=== PATIENT | female | born 1970 | race Caucasian/White ===

== ENCOUNTER → 2018-05-31 09:17 | Outpatient (CLI) | payer OTHER, SELFPAY ==
--- NOTE | 2018-05-31 09:20 | BI_ITS ---
MAMMOGRAPHY - BILATERAL SCREENING REASON FOR EXAM: Female, 47 years old. Routine annual screening examination. PERTINENT HISTORY: Non-contributory. TECHNIQUE: Digital bilateral breast manny (3D mammographic acquisition) in the CC and MLO projections. 2-D mediolateral oblique (MLO) and craniocaudad (CC) views of both breasts were obtained. CAD: Full Field Digital Mammography with Computer Added Detection was performed. COMPARISON: Comparison is made with prior outside examination dated June 26, 2012. FINDINGS: Breast Composition: The breasts are extremely dense, which lowers the sensitivity of mammography. There are no dominant masses or suspicious calcifications. 1.3 cm well-defined nodule in the right axillary region. This has increased in size as compared to prior study. Correlation with ultrasound is recommended. No other significant abnormalities are identified. BI/SCREENING MAMM (CAD), BILAT IMPRESSION: 1.3 cm well-defined nodule in the right axillary region as described. This has increased in size as compared to prior study. Correlation with ultrasound is recommended. ASSESSMENT CATEGORY: BIRADS Category 0: Incomplete. Need additional imaging evaluation. A letter regarding these results will be sent to the patient by the facility within 30 days. Approximately 10% of breast cancers are not detected by mammography. A normal mammogram should not delay biopsy of a clinically suspicious abnormality. [id number] Electronically Signed: Mikel Schmidt MD at 15:06 EST , Service support ,
--- NOTE | 2018-05-31 09:25 | BD_ITS ---
STUDY: DUAL ENERGY X-RAY ABSORPTIOMETRY / DXA REASON FOR EXAM: Female, 47 years old. The patient is postmenopausal. No loss of height. TECHNIQUE: Bone Mineral Density (BMD) measurements of lumbar spine and bilateral hips were obtained. COMPARISON: None. FINDINGS: Lumbar Spine (L1-L4): g/cm2 (0.842) / T-score (-2.8) / Z-score (-2.5) Findings are suggestive of osteoporosis with a high fracture risk. Left Femur Total: g/cm2 (0.698) / T-score (-2.5) / Z-score (-2.0) Left Femoral Neck: g/cm2 (0.699) / T-score (-2.4) / Z-score (-1.7) Right Femur Total: g/cm2 (0.723) / T-score (-2.3) / Z-score (-1.8) Right Femoral Neck: g/cm2 (0.718) / T-score (-2.3) / Z-score (-1.6) BD/Dexa Bone Density Study IMPRESSION: The patient is considered osteoporotic as outlined below according to World [employer] Organization (WHO) criteria with a high fracture risk. Reference Information: The T-score is the number of standard deviations above or below the standard which is normal for young adults at their peak bone mineral density. The World Health Organization (WHO) interprets the T-scores as follows: Above -1 Normal bone density Between -1 and -2.5 Osteopenia Equal to / or below -2.5 Osteoporosis As a practical clinical guideline, osteopenia may be graded as follows: Mild -1 through -1.5 Moderate -1.6 through -2.0 Severe -2.1 through -2.4 The Z-score is the number of standard deviations above or below age-matched controls. A Z-score of less than -1.5 would be considered abnormal. References: 1. NIH Osteoporosis and Related Bone Diseases http://www.osteo.org 2. International Society for Clinical Densitometry http://www.iscd.org 3. National Osteoporosis Foundation http://www.nof.org Electronically Signed: Mikel Schmidt MD at 9:08 EST , Service support ,
== END ==
PROVIDERS: Family Provider Internal Medicine; PCP Internal Medicine; Referring Provider Internal Medicine; Visit Provider Internal Medicine
DX: M81.0 Age-related osteoporosis without current pathological fracture (principal); Z78.0 Asymptomatic menopausal state; Z12.31 Encounter for screening mammogram for malignant neoplasm of breast
CPT/HCPCS: 77063; 77067; 77080

== ENCOUNTER → 2018-06-05 09:29 | Outpatient (CLI) | payer OTHER, SELFPAY ==
--- NOTE | 2018-06-05 09:31 | US_ITS ---
STUDY: ULTRASOUND BREAST - RIGHT REASON FOR EXAM: Female, 47 years old. Abnormal screening mammogram. TECHNIQUE: Axial and longitudinal images of the RIGHT breast were performed with a high resolution ultrasound transducer. COMPARISON: Comparison is made with prior mammogram dated May 31, 2018. FINDINGS: RIGHT Breast: The mammographic abnormality corresponds to a 1 cm x 1.2 cm x 0.8 cm hypoechoic solid nodule. Small amount of blood flow is seen along its periphery. A biopsy is recommended for further evaluation. US/Breast Limited Unilateral IMPRESSION: The mammographic and mildly corresponds to a 1 cm x 1.2 cm x 0.8 cm hypoechoic solid nodule is possible. A biopsy is recommended for further evaluation. ASSESSMENT CATEGORY: BIRADS Category 4: Suspicious - Biopsy Should Be Considered. A letter regarding these results will be sent to the patient by the facility within 30 days. Electronically Signed: Mikel Schmidt MD at 10:59 EST , Service support ,
== END ==
PROVIDERS: Family Provider Internal Medicine; PCP Internal Medicine; Referring Provider Internal Medicine; Visit Provider Internal Medicine
DX: N63.10 Unspecified lump in the right breast, unspecified quadrant (principal)
CPT/HCPCS: 76642

== ENCOUNTER → 2018-06-30 09:15 | Outpatient (CLI) | payer OTHER, SELFPAY ==
[2018-06-30 09:14] VITALS: BMI 20.2
--- NOTE | 2018-06-30 09:15 | MASS_PTH ---
PATIENT: NATALIE CHAWLA LOC: [facility] U#:[id number] AGE/SX: 54/F ROOM: RE06/30/[address]: Dr. Kel Padilla MD : 1970 BED: DIS: SPEC #: [id number] RECD: 07/02/18 07:10 STATUS: JULIA MEL #: [id number] ADELIA: 06/30/18 09:[address]: Kel Padilla DEPT: SURGICAL PATHOLOGY RECD BY: Heather Alex ENTERED: 07/02/18 11:12 SP TYPE: Mass OTHR DR: Dr. April Rocha, DO Tissues: Axilla, NOS Procedures: Surgery Specimen Level IV HEADER OPERATION: Excision right axillary mass PRE-OP DIAGNOSIS: Right axillary mass - abnormal US TISSUE SUBMITTED: Right axillary mass MICROSCOPIC DIAGNOSIS Right axillary mass, biopsy: Fibroadenoma. Breast parenchyma with focal intraductal hyperplasia without atypia. Breast parenchyma with mild fibrocystic change. Rare Banal microcalcifications. AM:cate 07/03/18 COMMENT Case has been reviewed in consultation with Dr. Herrera who concurs with the above diagnosis. IDC:SJ MICROSCOPIC DESCRIPTION Slides are reviewed. GROSS DESCRIPTION Received in fixative is one container labeled with the patient's name and designated right axillary mass. The specimen consists of three irregular fragments of yellow to arciniega soft tissue that in aggregate measure 3.5 x 1.5 x 0.8 cm. The specimen is sectioned and totally submitted in two cassettes as follows: 1 - firmer tissue, 2 - fatty tissue. / AM:cate 07/02/18 TC:1 CPT: 18117
== END ==
PROVIDERS: Family Provider Internal Medicine; PCP Internal Medicine; Referring Provider Surgery; Visit Provider Surgery
DX: R22.31 Localized swelling, mass and lump, right upper limb (principal)
CPT/HCPCS: 88305

== ENCOUNTER 2020-07-02 15:03 | Outpatient (RCR) | payer OTHER, SELFPAY ==
[2018-06-30 09:14] VITALS: BMI 20.2
[2020-07-02] MEDS: COVID-19 VACC, MRNA(PFIZER)/PF 30 MCG/0.3 ML SYRINGE IM (13:38)
[2020-07-23] MEDS: COVID-19 VACC, MRNA(PFIZER)/PF 30 MCG/0.3 ML SYRINGE IM (13:28)
== END 2020-07-02 23:59 ==
LOC: IMMUN 15:03
PROVIDERS: PCP Internal Medicine; Visit Provider Family Medicine
DX: Z23 Encounter for immunization (principal)
CPT/HCPCS: 0001A; 0002A; 91300

== ENCOUNTER → 2021-08-16 | Outpatient (CLI) | payer OTHER, SELFPAY ==
[2021-08-16 12:19] LABS: Absolute Lymphocyte Count 2.56 X10^3/uL (0.83-4.51); Absolute Neutrophil Count 3.1 X10^3/uL (2.0-7.7); Basophil# 0.06 X10^3/uL; Basophil% 0.9 % (0-1); Hematocrit 39.4 % (37-47); Hemoglobin 12.9 g/dL (12.0-15.0); Lymphocyte # 2.56 X10^3/ul (0.83-4.51); Lymphocyte % 38.7 % (19-41); Mean Corp Hgb Conc 32.7 g/dL (32-36); Mean Corpuscular Hgb 29.1 pg (27.0-32.0); Mean Corpuscular Volume 88.9 fL (81-99); Mean Platelet Vol. 10.9 fl (6.2-12.0); Monocyte# 0.65 X10^3/uL; Monocyte% 9.8 % (0-10); NRBC Flagged by Analyzer 0 % (0-5); Neutrophil # 3.11 X10^3/uL (2.7-7.7); Neutrophil % 47.1 % (47-70); Platelet Count 315 K/mm3 (150-450); RBC Distribution Width CV 12.7 % (11.6-14.6); Red Blood Count 4.43 M/mm3 (4.2-5.4); White Blood Count 6.6 K/mm3 (4.4-11.0)
[2021-08-16 12:47] LABS: Vitamin D,25 Hydroxy 54.3 ng/mL
[2021-08-16 12:54] LABS: Albumin, Serum 3.9 g/dL (3.2-5.0); BUN 15 mg/dL (7-18); BUN/Creat Ratio 16.8 RATIO (10-20); Creatinine, Serum 0.89 mg/dL (0.55-1.02); EST Glomerular Filtration Rate 71 mL/min (>60); Est Glom Filt Rate - Afr Amer 85 mL/min (>60); Glucose 99 mg/dL (74-106); Protein, Total 7.6 g/dL (6.4-8.2)
[2021-08-16 12:55] LABS: ALB/GLOB Ratio 1.1 RATIO (0.9-2.4); AST(SGOT) 24 U/L (15-37); Alanine Aminotransfer ALT/SGPT 33 U/L (13-56); Alkaline Phosphatase 81 U/L (45-117); Anion Gap 5 (5-15); Calcium,Total 9.7 mg/dL (8.5-10.1); Chloride 105 mmol/L (98-107); Cholesterol 164 mg/dL (200); Globulin 3.7 g/dL (2.2-4.2); High Density Lipoprotein 62 mg/dL; Potassium 4.9 mmol/L (3.5-5.1); Sodium Level 139 mmol/L (136-145); Triglycerides 65 mg/dL; Very Low Density Lipoprotein 13 mg/dL (5-40)
== END | disposition home or self-care (01) ==
LOC: BIMLAB 08:57
PROVIDERS: PCP Internal Medicine; Referring Provider Internal Medicine; Visit Provider Internal Medicine
DX: Z00.00 Encounter for general adult medical examination without abnormal findings (principal); M81.0 Age-related osteoporosis without current pathological fracture
CPT/HCPCS: 36415; 80053; 80061; 82306; 85025

== ENCOUNTER → 2021-08-26 | Outpatient (CLI) | payer OTHER, SELFPAY ==
--- NOTE | 2021-08-26 12:22 | BD_ITS ---
STUDY: DUAL ENERGY X-RAY ABSORPTIOMETRY / DXA REASON FOR EXAM: Female, 50 years old. Osteoporosis TECHNIQUE: Bone Mineral Density (BMD) measurements of lumbar spine and bilateral hips were obtained. COMPARISON: Comparison is made with prior study of 05/31/2018. FINDINGS: Lumbar Spine (L1-L4): g/cm2 (0.671) / T-score (-3.9) / Z-score (-3.0) Findings are suggestive of osteoporosis with a high fracture risk. Left Femur Total: g/cm2 (0.689) / T-score (-2.1) / Z-score (-1.5) Left Femoral Neck: g/cm2 (0.554) / T-score (-2.7) / Z-score (-1.8) Right Femur Total: g/cm2 (0.667) / T-score (-2.3) / Z-score (-1.7) Right Femoral Neck: g/cm2 (0.5-6) / T-score (-2.9) / Z-score (-2.1) The T-Scores on the most recent prior examination were: Lumbar Spine (L1-L4): There has been worsening of bone density since the previous examination. Left Femur Total: which represents an improvement of 7.5%. Right Femur Total: which represents an improvement of 0.3%. BD/Dexa Bone Density Study IMPRESSION: The patient is considered osteoporotic as outlined below according to World Angel Organization (WHO) criteria with a high fracture risk. There has been improvement of bone density since the previous examination. Reference Information: The T-score is the number of standard deviations above or below the standard which is normal for young adults at their peak bone mineral density. The World Health Organization (WHO) interprets the T-scores as follows: Above -1 Normal bone density Between -1 and -2.5 Osteopenia Equal to / or below -2.5 Osteoporosis As a practical clinical guideline, osteopenia may be graded as follows: Mild -1 through -1.5 Moderate -1.6 through -2.0 Severe -2.1 through -2.4 The Z-score is the number of standard deviations above or below age-matched controls. A Z-score of less than -1.5 would be considered abnormal. References: 1. NIH Osteoporosis and Related Bone Diseases www osteo.org 2. International Society for Clinical Densitometry www iscd.org 3. National Osteoporosis Foundation www nof.org Electronically Signed: Mikel Schmidt MD at 15:11 EDT ,
--- NOTE | 2021-08-26 12:22 | BI_ITS ---
MAMMOGRAPHY - BILATERAL SCREENING REASON FOR EXAM: Female, 50 years old. Routine annual screening examination. PERTINENT HISTORY: Non-contributory. TECHNIQUE: Digital bilateral breast ryan (3D mammographic acquisition) in the CC and MLO projections. 2-D mediolateral oblique (MLO) and craniocaudad (CC) views of both breasts were obtained. CAD: Full Field Digital Mammography with Computer Added Detection was performed. COMPARISON: Comparison is made with prior examination dated 05/31/2018. FINDINGS: Breast Composition: The breasts are extremely dense, which lowers the sensitivity of mammography. There are no dominant masses or suspicious calcifications. The previously seen 1.3 cm well-defined nodule in the right axillary region No other significant abnormalities are identified. BI/SCRN MAMM (CAD)W/RYAN BILAT IMPRESSION: Stable bilateral screening mammogram. Yearly follow-up mammogram recommended. (A) ASSESSMENT CATEGORY: BIRADS Category 1: Negative. A letter regarding these results will be sent to the patient by the facility within 30 days. Approximately 10% of breast cancers are not detected by mammography. A normal mammogram should not delay biopsy of a clinically suspicious abnormality. [id number] Electronically Signed: Mikel Schmidt MD at 13:37 EDT ,
== END | disposition home or self-care (01) ==
LOC: OPBD 12:19
PROVIDERS: PCP Internal Medicine; Visit Provider Internal Medicine
DX: Z12.31 Encounter for screening mammogram for malignant neoplasm of breast (principal); M81.0 Age-related osteoporosis without current pathological fracture
CPT/HCPCS: 77063; 77067; 77080

== ENCOUNTER → 2021-09-07 | Outpatient (CLI) | payer OTHER, SELFPAY ==
[2021-09-15 22:30] LABS: HPV APTIMA, High Risk Negative (Negative)
== END | disposition home or self-care (01) ==
LOC: LABSPEC 17:24
PROVIDERS: PCP Internal Medicine; Visit Provider Obstetrics & Gynecology
DX: Z12.4 Encounter for screening for malignant neoplasm of cervix (principal)
CPT/HCPCS: 87624; 88175; G0145

== ENCOUNTER 2021-10-27 07:01 | Day surgery (SDC) | payer OTHER, SELFPAY ==
[2021-10-27] VITALS (7 sets, daily range): BP systolic 83–128; BP diastolic 40–69; PULSE 59–86; RESP 14–18; TEMP 36.1–36.4; O2SAT 100; BMI 19.9
[2021-10-27] MEDS: Lactated Ringers 1,000 ML 15 ML IV (07:39)
--- NOTE | 2021-10-27 07:51 | HP.PCM_ITS ---
HPI - General HPI Narrative NATALIE CHAWLA, is a 50 F who presents for screening colonoscopy. Patient never had previous colonoscopy. Patient denies any family history of colon cancer. Patient denies any chronic abdominal pain/nausea/vomiting/reflux. Patient has bowel movements daily denies any blood PFSH Medical History (Updated 10/25/21 @ 10:26 by Farrah Bello) Abnormal mammogram Abnormal ultrasound of breast Colon cancer screening Fibroadenoma of right breast History of wrist fracture Lump of right breast Mass of right axilla No known health problems Osteoporosis Post-menopausal Preventative health retirement Medications NK 10/25/21 [History Last Taken Unknown] Allergy/AdvReac Type Severity Reaction Status Date / Time No Known Allergies Allergy Verified 10/25/21 10:17 Family History Mother Arthritis Osteoporosis Diabetes Hypertension Father Arthritis Cancer bladder cancer and skin cancer Osteoporosis Diabetes Hypertension Heart disease Sister Diabetes Surgical History history excisional biopsy right axilla (~06/30/18) History of right breast biopsy (~06/2018) No history of previous surgery Social History Smoking Status: Never smoker alcohol intake: current alcohol intake frequency: a few times a week Alcohol type: wine substance use type: does not use what type of physical activity do you participate in: none Past Medical/Surgical History Planned Operation Planned Operative Procedure/s: Colonoscopy Previous Hospitalizations/Surgeries HX Hospitalizations: No You/Your Family Experience Fever (Hyperthermia) With Anes: No Cardiovascular Hx Hypertension: No Respiratory Hx Sleep Apnea: No Do You Snore Loudly (louder than talking or can be heard): No Do You Often Feel Tired/ Fatigued/ Sleepy Dring Daytime?: No Has Anyone Observed You Stop Breathing During Sleep?: No Result (for STOP score): Negative Smoking Status: Never smoker Neurological Does patient have nerve stimulator: No Allergies No Known Allergies Allergy (Verified 10/25/21 10:17) Discharge Is Pt Admitted From a Alf, or a Long Term: No After D/C, Where Do you Plan to Go: Return Home Vital Signs Vital Signs Vital Signs: 10/27/21 07:33 10/27/21 07:36 Temperature 97.6 F L Temperature Source Temporal Pulse Rate 86 Respiratory Rate 14 Respiratory Pattern Normal Blood Pressure 128/69 H Blood Pressure Mean 88 Blood Pressure Source Monitor Blood Pressure Position Sitting Blood Pressure Location Left Arm Pulse Ox 100 Oxygen Delivery Method Room Air Weight Weight: 123 lb 7.342 oz Body Mass Index (BMI) 19.9 Physical Exam Const alert, oriented x3 and no apparent distress HEENT normocephalic and head/scalp atraumatic Resp normal respiratory effort Cardio regular rate GI soft to palpation and non-tender; Negative for non-distended Palpation: Negative for guarding Extremity no clubbing, cyanosis or edema Neuro CN's II-XII intact bilaterally Psych mental status grossly normal Assessment & Plan Assessment/Plan (1) Colon cancer screening: Surgery Risks - Colonoscopy Risks Include but are not Limited To: Risks include but are not limited to: Bleeding, perforation requiring further surgery, inability to complete colonoscopy requiring barium enema. Patient had no further questions
--- NOTE | 2021-10-27 08:00 | COLBX_PTH ---
PATIENT: NATALIE CHAWLA LOC: [facility] U#:[id number] AGE/SX: 50/F ROOM: RE10/27/[address]: Dr. Calista Robison MD : 1970 BED: DIS: 10/27/2021 SPEC #: [id number] RECD: 10/27/21 10:08 STATUS: JULIA MUSTAPHABabs #: [id number] ADELIA: 10/27/21 08:[address]: Calista Robison DEPT: SURGICAL PATHOLOGY RECD BY: Heather Alex ENTERED: 10/27/21 10:35 SP TYPE: COLON BX OTHR DR: Dr. Wagner Tubbs MD Tissues: Rectum, NOS Procedures: Surgery Specimen Level IV HEADER OPERATION: Colonoscopy ? open access (MAC) PRE-OP DIAGNOSIS: Colon cancer screening TISSUE SUBMITTED: Rectal polyp biopsy x2 MICROSCOPIC DIAGNOSIS Rectal polyp, biopsy: Fragments of hyperplastic polyp. AM:cate 10/28/2021 MICROSCOPIC DESCRIPTION Slides are reviewed. GROSS DESCRIPTION Received in fixative is one container labeled with the patient's name and designated rectal polyp biopsy x2. The specimen consists of multiple irregular fragments of light arciniega soft tissue that in aggregate measure 0.8 x 0.5 x 0.1 cm. The specimen is totally submitted in one cassette. / SJ:cate 10/27/2021 TC:5 CPT: 76055
--- NOTE | 2021-10-27 08:37 | OP.COLON_ITS ---
Patient Name: Nannette Gunter Procedure Date: 10/27/2021 7:48 AM Date of : 1970 Age: 50 Procedure: Colonoscopy Indications: Screening for colorectal malignant neoplasm Providers: Calista Robison MD Medicines: Monitored Anesthesia Care Patient Profile: This is a 50 year old female. Last Colonoscopy: none. The patient's first colonoscopy is today. Complications: No immediate complications. Procedure: Pre-Anesthesia Assessment: - Prior to the procedure, a History and Physical was performed, and patient medications and allergies were reviewed. The patient's tolerance of previous anesthesia was also reviewed. The risks and benefits of the procedure and the sedation options and risks were discussed with the patient. All questions were answered, and informed consent was obtained. Prior Anticoagulants: The patient has taken no previous anticoagulant or antiplatelet agents. ASA Grade Assessment: Per anesthesia. After reviewing the risks and benefits, the patient was deemed in satisfactory condition to undergo the procedure. After I obtained informed consent, the scope was passed under direct vision. Throughout the procedure, the patient's blood pressure, pulse, and oxygen saturations were monitored continuously. The Colonoscope was introduced through the anus and advanced to the cecum, identified by the appendiceal orifice, ileocecal valve and palpation. The colonoscopy was performed without difficulty. The patient tolerated the procedure well. The quality of the bowel preparation was good. Scope In: 8:00:26 AM Scope Withdrawal Time 0 hours 20 minutes 21 seconds Scope Out: 8:28:28 AM Total Procedure Duration Time 0 hours 28 minutes 2 seconds Findings: The perianal and digital rectal examinations were normal. Two sessile polyps were found in the rectum. The polyps were less than 5 mm in size. These polyps were removed with a cold biopsy forceps. Resection and retrieval were complete. The exam was otherwise without abnormality on direct and retroflexion views. Impression: - Two less than 5 mm polyps in the rectum, removed with a cold biopsy forceps. Resected and retrieved. - The examination was otherwise normal on direct and retroflexion views. Recommendation: - Discharge patient to home. - Resume previous diet. - Continue present medications. - Await pathology results. - Repeat colonoscopy in 5 years for surveillance based on pathology results. Procedure Code(s): --- Professional --- 48068, PT, Colonoscopy, flexible; with biopsy, single or multiple Diagnosis Code(s): --- Professional --- Z12.11, Encounter for screening for malignant neoplasm of colon K62.1, Rectal polyp CPT copyright 2017 [employer]. All rights reserved. The codes documented in this report are preliminary and upon estate planning attorney review may be revised to meet current compliance requirements. MD Calista Calhoun MD 10/27/2021 8:37:13 AM This report has been signed electronically. Number of Addenda: 0 Note Initiated On: 10/27/2021 7:48 AM
--- NOTE | 2021-10-27 08:38 | OP.CCLET_ITS ---
10/27/2021 Wagner Tubbs MD [address] [place] [address] [place] [address] Re : Colonoscopy procedure for Nannette Gunter Dear Dr. Tubbs This procedure was performed on Wednesday, October 27, 2021. My impressions and recommendations are as follows: Impressions : - Two less than 5 mm polyps in the rectum, removed with a cold biopsy forceps. Resected and retrieved. - The examination was otherwise normal on direct and retroflexion views. Recommendations : - Discharge patient to home. - Resume previous diet. - Continue present medications. - Await pathology results. - Repeat colonoscopy in 5 years for surveillance based on pathology results. My findings are described in the full procedure note, which is enclosed. If I can be of further assistance, please feel free to contact me at Doctor phone number(s): , Work: . Sincerely, MD Calista Calhoun MD 10/27/2021 8:37:13 AM This report has been signed electronically.
== END 2021-10-27 09:20 | disposition home or self-care (01) ==
LOC: EN 07:03 → AC 07:03
PROVIDERS: PCP Internal Medicine; Referring Provider Internal Medicine; Visit Provider Surgery
PROC: 0DJD8ZZ Inspection of Lower Intestinal Tract, Via Natural or Artificial Opening Endoscopic (ICD-10-PCS; CPT 45378; principal; 2021-10-27 07:55)
DX: Z12.11 Encounter for screening for malignant neoplasm of colon (principal); K62.1 Rectal polyp
CPT/HCPCS: 45380; 88305; J7120; J2405

== ENCOUNTER → 2021-10-29 | Outpatient (CLI) | payer OTHER, SELFPAY ==
[2021-10-29 17:52] LABS: Thyroid Stim Hormone (TSH) 1.74 uIU/mL (0.358-3.74)
== END | disposition home or self-care (01) ==
LOC: BIMLAB 13:28
PROVIDERS: PCP Internal Medicine; Referring Provider Internal Medicine Endocrinology, Diabetes & Metabolism; Visit Provider Internal Medicine Endocrinology, Diabetes & Metabolism
DX: M81.0 Age-related osteoporosis without current pathological fracture (principal)
CPT/HCPCS: 36415; 83970; 84443

== ENCOUNTER → 2021-11-11 | Outpatient (CLI) | payer OTHER, SELFPAY ==
[2021-11-11] MEDS: 0.9% NaCl Peripheral Flush Adult/Peds IV (14:33)
[2021-11-11] MEDS: 0.9% NaCl IVPB Med Flush (250 mL) 15 ML IV (14:42)
[2021-11-11] MEDS: Zoledronic Acid 5 MG 100 ML 300 MG IV (14:43)
[2021-11-11 14:50] VITALS: BP 127/81; PULSE 65; RESP 12; TEMP 36.4; O2SAT 100; BMI 208.0
== END | disposition home or self-care (01) ==
LOC: MEDOUTP 14:28
PROVIDERS: PCP Internal Medicine; Referring Provider Internal Medicine Endocrinology, Diabetes & Metabolism; Visit Provider Internal Medicine Endocrinology, Diabetes & Metabolism
DX: M81.0 Age-related osteoporosis without current pathological fracture (principal)
CPT/HCPCS: 96365; J7050; A4216; J3489

== ENCOUNTER → 2022-10-19 | Outpatient (CLI) | payer OTHER, SELFPAY ==
[2022-10-23 11:07] LABS: HPV APTIMA, High Risk Negative (Negative)
== END | disposition home or self-care (01) ==
PROVIDERS: PCP Internal Medicine; Visit Provider Nurse Practitioner Women's Health
DX: Z12.4 Encounter for screening for malignant neoplasm of cervix (principal)
CPT/HCPCS: 87624; 88175; G0145

== ENCOUNTER → 2022-10-27 | Outpatient (CLI) | payer OTHER, SELFPAY ==
[2022-10-27 14:14] LABS: Vitamin D,25 Hydroxy 84.2 ng/mL
[2022-10-27 14:30] LABS: ALB/GLOB Ratio 0.9 RATIO (0.9-2.4); AST(SGOT) 24 U/L (15-37); Alanine Aminotransfer ALT/SGPT 24 U/L (13-56); Albumin, Serum 3.6 g/dL (3.2-5.0); Alkaline Phosphatase 64 U/L (45-117); Anion Gap 2 (5-15); BUN 24 mg/dL (7-18); BUN/Creat Ratio 21.4 RATIO (10-20); Calcium,Total 9.1 mg/dL (8.5-10.1); Chloride 105 mmol/L (98-107); Creatinine, Serum 1.12 mg/dL (0.55-1.02); EST Glomerular Filtration Rate 54 mL/min (>60); Est Glom Filt Rate - Afr Amer 66 mL/min (>60); Globulin 3.8 g/dL (2.2-4.2); Glucose 102 mg/dL (74-106); Protein, Total 7.4 g/dL (6.4-8.2); Sodium Level 139 mmol/L (136-145)
== END | disposition home or self-care (01) ==
LOC: LAB 12:53
PROVIDERS: PCP Internal Medicine; Referring Provider Internal Medicine Endocrinology, Diabetes & Metabolism; Visit Provider Internal Medicine Endocrinology, Diabetes & Metabolism
DX: E55.9 Vitamin D deficiency, unspecified (principal); M81.0 Age-related osteoporosis without current pathological fracture
CPT/HCPCS: 36415; 80053; 82306

== ENCOUNTER → 2022-11-01 | Outpatient (CLI) | payer OTHER, SELFPAY ==
--- NOTE | 2022-11-01 07:52 | BI_ITS ---
MAMMOGRAPHY - BILATERAL SCREENING 3-D TOMOSYNTHESIS REASON FOR EXAM: Female, 51 years old. Breast Cancer Screening PERTINENT HISTORY: No significant family history. TECHNIQUE: 2-D mammograms and 3-D Tomosynthesis of the breast (s) were performed. CAD was performed. COMPARISON: 08/26/2021 FINDINGS: The breast composition is heterogeneously dense that can obscure small breast masses. Scattered benign calcifications are seen. No dense spiculated masses or suspicious microcalcifications are identified. No architectural distortion is identified. There is no skin thickening or retraction. There has been no significant change since the prior study. BI/SCRN MAMM (CAD)W/RYAN BILAT IMPRESSION: No mammographic signs of malignancy. Routine yearly mammograms recommended. ASSESSMENT CATEGORY: BIRADS Category 2: Benign. A letter regarding these results will be sent to the patient by the facility within 30 days. FOLLOW UP RECOMMENDATION: Yearly follow up mammogram recommended. (A) Approximately 10% of breast cancers are not detected by mammography. A normal mammogram should not delay biopsy of a clinically suspicious abnormality. Electronically Signed: Rosales Schreiber MD at 10:26 EDT ,
== END | disposition home or self-care (01) ==
LOC: OPBI 07:50
PROVIDERS: PCP Internal Medicine; Referring Provider Internal Medicine; Visit Provider Internal Medicine
DX: Z12.31 Encounter for screening mammogram for malignant neoplasm of breast (principal)
CPT/HCPCS: 77063; 77067

== ENCOUNTER 2022-11-18 13:57 | Outpatient (CLI) | payer OTHER, SELFPAY ==
[2022-11-18 14:19] VITALS: BP 106/55; PULSE 84; RESP 16; TEMP 36.1; O2SAT 100; BMI 20.9
[2022-11-18] MEDS: 0.9% NaCl Peripheral Flush Adult/Peds IV (14:27)
[2022-11-18] MEDS: Zoledronic Acid 5 MG 100 ML 300 MG IV (14:27)
[2022-11-18 14:56] VITALS: BP 106/58; PULSE 80; TEMP 36.2
== END 2022-11-18 13:58 | disposition home or self-care (01) ==
LOC: MEDOUTP 13:58
PROVIDERS: PCP Internal Medicine; Referring Provider Internal Medicine Endocrinology, Diabetes & Metabolism; Visit Provider Internal Medicine Endocrinology, Diabetes & Metabolism
DX: M81.0 Age-related osteoporosis without current pathological fracture (principal)
CPT/HCPCS: 96365; A4216; J3489

== ENCOUNTER → 2022-11-21 | Outpatient (CLI) | payer OTHER, SELFPAY ==
[2022-11-21 16:40] LABS: Absolute Lymphocyte Count 2.29 X10^3/uL (0.83-4.51); Absolute Neutrophil Count 6.9 X10^3/uL (2.0-7.7); Basophil# 0.08 X10^3/uL; Basophil% 0.8 % (0-1); Eosinophil# 0.26 X10^3/uL; Eosinophils% 2.5 % (0-5); Hematocrit 39.8 % (37-47); Hemoglobin 12.7 g/dL (12.0-15.0); Lymphocyte # 2.29 X10^3/ul (0.83-4.51); Lymphocyte % 22.3 % (19-41); Mean Corp Hgb Conc 31.9 g/dL (32-36); Mean Corpuscular Hgb 28.3 pg (27.0-32.0); Mean Corpuscular Volume 88.8 fL (81-99); Mean Platelet Vol. 10.8 fl (6.2-12.0); Monocyte# 0.74 X10^3/uL; Monocyte% 7.2 % (0-10); NRBC Flagged by Analyzer 0 % (0-5); Neutrophil # 6.85 X10^3/uL (2.7-7.7); Neutrophil % 66.9 % (47-70); Platelet Count 361 K/mm3 (150-450); RBC Distribution Width CV 11.7 % (11.6-14.6); RBC Distribution Width SD 37.5 fl (35.1-43.9); Red Blood Count 4.48 M/mm3 (4.2-5.4); White Blood Count 10.3 K/mm3 (4.4-11.0)
[2022-11-21 17:24] LABS: ALB/GLOB Ratio 0.7 RATIO (0.9-2.4); AST(SGOT) 17 U/L (15-37); Alanine Aminotransfer ALT/SGPT 20 U/L (13-56); Albumin, Serum 3.2 g/dL (3.2-5.0); Alkaline Phosphatase 89 U/L (45-117); Anion Gap 4 (5-15); BUN 14 mg/dL (7-18); BUN/Creat Ratio 12.4 RATIO (10-20); Calcium,Total 9.7 mg/dL (8.5-10.1); Chloride 105 mmol/L (98-107); Cholesterol 131 mg/dL (200); Creatinine, Serum 1.13 mg/dL (0.55-1.02); EST Glomerular Filtration Rate 54 mL/min (>60); Est Glom Filt Rate - Afr Amer 65 mL/min (>60); Globulin 4.4 g/dL (2.2-4.2); Glucose 109 mg/dL (74-106); High Density Lipoprotein 39 mg/dL; Potassium 4.9 mmol/L (3.5-5.1); Protein, Total 7.6 g/dL (6.4-8.2); Sodium Level 139 mmol/L (136-145); Triglycerides 131 mg/dL; Very Low Density Lipoprotein 26 mg/dL (5-40)
== END | disposition home or self-care (01) ==
LOC: BIMLAB 14:30
PROVIDERS: PCP Internal Medicine; Referring Provider Internal Medicine; Visit Provider Internal Medicine
DX: Z00.00 Encounter for general adult medical examination without abnormal findings (principal)
CPT/HCPCS: 36415; 80053; 80061; 85025

== ENCOUNTER → 2023-11-20 | Outpatient (CLI) | payer OTHER, SELFPAY ==
[2023-11-20 15:33] LABS: Vitamin D,25 Hydroxy 65.6 ng/mL
[2023-11-20 15:40] LABS: AST(SGOT) 24 U/L (15-37); Alanine Aminotransfer ALT/SGPT 26 U/L (13-56); Albumin, Serum 3.6 g/dL (3.2-5.0); Alkaline Phosphatase 66 U/L (45-117); Anion Gap 4 (5-15); BUN 17 mg/dL (7-18); BUN/Creat Ratio 19.6 RATIO (10-20); Calcium,Total 9.5 mg/dL (8.5-10.1); Chloride 106 mmol/L (98-107); Creatinine, Serum 0.87 mg/dL (0.55-1.02); EST Glomerular Filtration Rate 73 mL/min (>60); Est Glom Filt Rate - Afr Amer 88 mL/min (>60); Globulin 3.7 g/dL (2.2-4.2); Glucose 125 mg/dL (74-106); Potassium 4.8 mmol/L (3.5-5.1); Protein, Total 7.3 g/dL (6.4-8.2); Sodium Level 141 mmol/L (136-145); Thyroid Stim Hormone (TSH) 1.93 uIU/mL (0.358-3.74)
== END | disposition home or self-care (01) ==
LOC: BIMLAB 12:08
PROVIDERS: PCP Internal Medicine; Referring Provider Internal Medicine Endocrinology, Diabetes & Metabolism; Visit Provider Internal Medicine Endocrinology, Diabetes & Metabolism
DX: N18.31 Chronic kidney disease, stage 3a (principal); M81.0 Age-related osteoporosis without current pathological fracture; E55.9 Vitamin D deficiency, unspecified
CPT/HCPCS: 36415; 80053; 82306; 84443

== ENCOUNTER → 2023-11-23 | Outpatient (CLI) | payer OTHER, SELFPAY ==
[2023-11-23 16:44] LABS: Absolute Lymphocyte Count 3.19 X10^3/uL (0.83-4.51); Basophil# 0.04 X10^3/uL; Basophil% 0.5 % (0-1); Eosinophil# 0.16 X10^3/uL; Hemoglobin 13.5 g/dL (12.0-15.0); Lymphocyte # 3.19 X10^3/ul (0.83-4.51); Lymphocyte % 40.2 % (19-41); Mean Corp Hgb Conc 32.9 g/dL (32-36); Mean Corpuscular Hgb 29.3 pg (27.0-32.0); Mean Corpuscular Volume 89.1 fL (81-99); Mean Platelet Vol. 10.7 fl (6.2-12.0); Monocyte# 0.56 X10^3/uL; Monocyte% 7.1 % (0-10); NRBC Flagged by Analyzer 0 % (0-5); Neutrophil # 3.98 X10^3/uL (2.7-7.7); Neutrophil % 50.1 % (47-70); Platelet Count 265 K/mm3 (150-450); RBC Distribution Width CV 12.4 % (11.6-14.6); RBC Distribution Width SD 40.6 fl (35.1-43.9); White Blood Count 7.9 K/mm3 (4.4-11.0)
[2023-11-23 17:04] LABS: Cholesterol 197 mg/dL (200); High Density Lipoprotein 69 mg/dL; Triglycerides 203 mg/dL; Very Low Density Lipoprotein 41 mg/dL (5-40)
== END | disposition home or self-care (01) ==
LOC: BIMLAB 15:50
PROVIDERS: PCP Internal Medicine; Referring Provider Internal Medicine; Visit Provider Internal Medicine
DX: Z00.00 Encounter for general adult medical examination without abnormal findings (principal)
CPT/HCPCS: 36415; 80061; 85025

== ENCOUNTER 2023-11-24 09:03 | Outpatient (CLI) | payer OTHER, SELFPAY ==
[2023-11-24 09:15] VITALS: BP 122/68; PULSE 67; RESP 16; TEMP 36.1; O2SAT 99; BMI 20.6
[2023-11-24] MEDS: 0.9% NaCl Peripheral Flush Adult/Peds IV (09:33)
[2023-11-24] MEDS: Zoledronic Acid 5 MG 100 ML 300 MG IV (09:33)
[2023-11-24 09:58] VITALS: BP 107/67; PULSE 62; RESP 16
== END 2023-11-24 23:59 | disposition home or self-care (01) ==
LOC: MEDOUTP 09:03
PROVIDERS: PCP Internal Medicine; Referring Provider Internal Medicine Endocrinology, Diabetes & Metabolism; Visit Provider Internal Medicine Endocrinology, Diabetes & Metabolism
DX: M81.0 Age-related osteoporosis without current pathological fracture (principal)
CPT/HCPCS: 96365; A4216; J3489

== ENCOUNTER → 2023-12-06 | Outpatient (CLI) | payer OTHER, SELFPAY ==
--- NOTE | 2023-12-06 07:48 | BI_ITS ---
MAMMOGRAPHY - BILATERAL SCREENING REASON FOR EXAM: Female, 53 years old. Routine annual screening examination. PERTINENT HISTORY: Non-contributory. TECHNIQUE: Digital bilateral breast ryan (3D mammographic acquisition) in the CC and MLO projections. 2-D mediolateral oblique (MLO) and craniocaudad (CC) views of both breasts were obtained. CAD: Full Field Digital Mammography with Computer Added Detection was performed. COMPARISON: Comparison is made with prior study dated November 01, 2022 and August 26, 2021. FINDINGS: Breast Composition: The breasts are extremely dense, which lowers the sensitivity of mammography. There are no dominant masses or suspicious calcifications. Stable small benign-appearing bilateral axillary lymph nodes. No other significant abnormalities are identified. There has been no significant change since the prior study. BI/SCRN MAMM (CAD)W/RYAN BILAT IMPRESSION: Stable bilateral screening mammogram. Yearly follow-up mammogram recommended. (A) ASSESSMENT CATEGORY: BIRADS Category 2: Benign. A letter regarding these results will be sent to the patient by the facility within 30 days. Approximately 10% of breast cancers are not detected by mammography. A normal mammogram should not delay biopsy of a clinically suspicious abnormality. [id number] Electronically Signed: Mikel Schmidt MD at 8:43 EDT ,
== END | disposition home or self-care (01) ==
LOC: OPBI 07:48
PROVIDERS: PCP Internal Medicine; Referring Provider Internal Medicine; Visit Provider Internal Medicine
DX: Z12.31 Encounter for screening mammogram for malignant neoplasm of breast (principal)
CPT/HCPCS: 77063; 77067

== ENCOUNTER → 2024-11-11 | Outpatient (CLI) | payer OTHER, SELFPAY ==
[2024-11-11 13:42] LABS: AST(SGOT) 31 U/L (<=31); Alanine Aminotransfer ALT/SGPT 30 U/L (<=34); Albumin, Serum 4.4 g/dL (3.5-5.0); Alkaline Phosphatase 78 U/L (35-104); Anion Gap 10 (5-15); BUN 16 mg/dL (4-19); BUN/Creat Ratio 18.3 RATIO (10-20); Calcium,Total 9.8 mg/dL (7.6-11.0); Carbon Dioxide 27.2 mmol/L (21.0-32.0); Chloride 103 mmol/L (98-108); Globulin 2.6 g/dL (2.2-4.2); Glucose 96 mg/dL (70-99); Potassium 4.9 mmol/L (3.3-5.1); Vitamin D,25 Hydroxy 68.1 ng/mL (30-100)
== END | disposition home or self-care (01) ==
LOC: BIMLAB 11:28
PROVIDERS: PCP Internal Medicine; Referring Provider Internal Medicine Endocrinology, Diabetes & Metabolism; Visit Provider Internal Medicine Endocrinology, Diabetes & Metabolism
DX: E03.9 Hypothyroidism, unspecified (principal); N18.31 Chronic kidney disease, stage 3a; M81.0 Age-related osteoporosis without current pathological fracture
CPT/HCPCS: 36415; 80053; 82306

== ENCOUNTER → 2024-11-22 | Outpatient (CLI) | payer OTHER, SELFPAY ==
--- OUTSIDE RECORDS SUMMARY | 2024-11-22 08:15 | XMS RPT_ITS | CCD ---
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 falls, headache(s), memory loss, numbness, tingling or visual disturbances Psych Psychiatric: No abnormal sleep pattern, No anxiety, No behavioral changes, No change in appetite, No irritability, No memory loss and No Thoughts of harming yourself/Others Endo Endocrine: No cold intolerance, excessive sweating, fatigue, flushing, heat intolerance, increased thirst/drinking, increased hunger or weight change Aller/Imm Allergy/Immunologic: No itchy eyes, seasonal allergy symptoms, hives or wheezing Jez/Lymp Hematologic/Lymphatic: No easy bleeding, easy bruising, enlarged lymph nodes or other Exam Const General: cooperative, comfortable and no acute distress Orientation: alert, awake and oriented x3 HENMT Head: normal to inspection, normocephalic and atraumatic Ears: hearing grossly (more content not included)... Normal [facility] Lipid Profileon 11-23-2023 Cholesterol [Mass/Vol] 197 mg/dL Normal 200 [facility] Comment on above: Result Comment: <200 mg/dL Desirable 200-240 mg/dL Borderline >240 mg/dL High Risk Performed By: #### L 500.4100, L100.0100 #### [facility] [address] [place], [address] Cholesterol in HDL [Mass/Vol] 69 mg/dL Normal [facility] Comment on above: Result Comment: The drugs N-Acetylcysteine and Metamizole may falsely depress this assay. Reference Range HDL <40 mg/dL Low HDL Cholesterol HDL >or= 60 mg/dL High HDL Cholesterol Performed By: #### L 500.4100, L100.0100 #### [facility] [address] [place], [address] Cholesterol in LDL [Mass/Vol] 87 mg/dL Normal 0-130 [facility] Comment on above: Performed By: #### L 500.4100, L100.0100 #### [facility] [address] [place], [address] Cholesterol in VLDL [Mass/Vol] 41 mg/dL High 5-40 [facility] Comment on above: Performed By: #### L 500.4100, L100.0100 #### [facility] [address] [place], [address] Triglyceride [Mass/Vol] 203 mg/dL High [facility] Comment on above: Result Comment: The drugs N-Acetylcysteine and Metamizole may falsely depress this assay. Serum Triglycerides Reference Interval Normal <150 mg/dL Borderline high 150 - 199 mg/dL High 200 - 499 mg/dL Very High > or = 500 mg/dL Performed By: #### L 500.4100, L100.0100 #### [facility] [address] [place], [address] Comprehensive Metabolic Prof okon 11-20-2023 Albumin [Mass/Vol] 3.6 g/dL Normal 3.2-5.0 [facility] Comment on above: Performed By: #### L 506.1000, L501.9520, L500.4050 #### [facility] [address] [place], [address] Albumin/Globulin [Mass ratio] 1.0 {ratio} Normal 0.9-2.4 [facility] Comment on above: Performed By: #### L 506.1000, L501.9520, L500.4050 #### [facility] [address] [place], [address] ALK P 66 U/L Normal 45-117 [facility] Comment on above: Performed By: #### L 506.1000, L501.9520, L500.4050 #### [facility] [address] [place], [address] ALT [Catalytic activity/Vol] 26 U/L Normal 13-56 [facility] Comment on above: Performed By: #### L 506.1000, L501.9520, L500.4050 #### [facility] [address] [place], [address] AST [Catalytic activity/Vol] 24 U/L Normal 15-37 [facility] Comment on above: Performed By: #### L 506.1000, [id number], L500.4050 #### [facility] [address] [place], [address] Bilirubin [Mass/Vol] 0.50 mg/dL Normal 0.20-1.00 [facility] Comment on above: Result Comment: For patients on eltrombopag therapy, use of Dimension [place] TBIL is not recommended. Performed By: #### L 506.1000, L501.9520, L500.4050 #### [facility] [address] [place], [address] BUN/CRE 19.6 RATIO Normal 10-20 [facility] Comment on above: Performed By: #### L 506.1000, L501.9520, L500.4050 #### [facility] [address] [place], [address] CA,Total 9.5 mg/dL Normal 8.5-10.1 [facility] Comment on above: Performed By: #### L 506.1000, [id number], L500.4050 #### [facility] [address] [place], [address] Chloride [Moles/Vol] 106 mmol/L Normal 98-107 [facility] Comment on above: Performed By: #### L 506.1000, [id number], L500.4050 #### [facility] [address] [place], [address] CO2 [Moles/Vol] 31.0 mmol/L Normal 21.0-32.0 [facility] Comment on above: Performed By: #### L 506.1000, [id number], L500.4050 #### [facility] [address] [place], [address] Creatinine [Mass/Vol] 0.87 mg/dL Normal 0.55-1.02 [facility] Comment on above: Result Comment: The validity of the calculated GFR GFRAA in patients over 70 years has not been determined. Clinical correlation is essential. Performed By: #### L 506.1000, L501.9520, L500.4050 #### [facility] [address] [place], [address] EST GFR - AA 88 mL/min Normal >60 [facility] Comment on above: Result Comment: Afri can [place] GFR Calc Performed By: #### L 506.1000, L501.9520, L500.4050 #### [facility] [address] [place], [address] GAP 4 Low 5-15 [facility] Comment on above: Performed By: #### L 506.1000, L501.9520, L500.4050 #### [facility] [address] [place], [address] GFR/1.73 sq M.predicted among non-blacks MDRD (S/P/Bld) [Vol rate/Area] 73 mL/min/{1.73_m2} Normal >60 [facility] Comment on above: Result Comment: Non- GFR Calc Performed By: #### L 506.1000, L501.9520, L500.4050 #### [facility] [address] [place], [address] Globulin (S) [Mass/Vol] 3.7 g/dL Normal 2.2-4.2 [facility] Comment on above: Performed By: #### L 506.1000, L501.9520, L500.4050 #### [facility] [address] [place], [address] Glucose [Mass/Vol] 125 mg/dL High 74-106 [facility] Comment on above: Result Comment: Fast ing Glucose result from 100 to 125 mg/dL suggests IMPAIRED HOMEOSTASIS per A.D.A. criteria. Performed By: #### L 506.1000, L501.9520, L500.4050 #### [facility] [address] [place], [address] Potassium [Moles/Vol] 4.8 mmol/L Normal 3.5-5.1 [facility] Comment on above: Performed By: #### L 506.1000, [id number], L500.4050 #### [facility] [address] [place], [address] Sodium [Moles/Vol] 141 mmol/L Normal 136-145 [facility] Comment on above: Performed By: #### L 506.1000, [id number], L500.4050 #### [facility] [address] [place], [address] T PROT 7.3 g/dL Normal 6.4-8.2 [facility] Comment on above: Performed By: #### L 506.1000, [id number], L500.4050 #### [facility] [address] [place], [address] Urea nitrogen [Mass/Vol] 17 mg/dL Normal 7-18 [facility] Comment on above: Performed By: #### L 506.1000, [id number], L500.4050 #### [facility] [address] [place], [address] Thyroid Stim Hormone (TSH)on 11-20-2023 TSH 1.93 uIU/mL Normal 0.358-3.74 [facility] Comment on above: Performed By: #### L 506.1000, L501.9520, L500.4050 #### [facility] [address] [place], [address] Vitamin D,25 Hydroxyon 11-19 Vitamin D 25-OH 65.6 ng/mL Normal [facility] Comment on above: Result Comment: Cinthya min D 25(OH) Status Range Deficiency <20 ng/mL (50nmol/L) Insufficiency 20 - 30 ng/mL (50 - 75 nmol/L) Sufficiency 30 - 100 ng/mL (75 - 250 nmol/L) Toxicity >100 ng/mL (>250 nmol/L) Performed By: #### L 506.1000, L501.9520, L500.4050 #### [facility] [address] [place], [address] Basophil percentageOrdered B y: Rolly Clancy on 10-27-2022 Bilirubin [Mass/Vol] 0.40 mg/dL 0.20-1.00 [facility] Comment on above: For patients on eltr ombopag therapy, use of Dimension [place] TBIL is not recommended. Chloride [Moles/Vol] 105 mmol/L 98-107 [facility] Glucose [Mass/Vol] 102 mg/dL 74-106 [facility] Comment on above: Fasting Glucose resu lt from 100 to 125 mg/dL suggests IMPAIRED HOMEOSTASIS per A.D.A. criteria. Potassium [Moles/Vol] 4.0 mmol/L 3.5-5.1 [facility] Protein [Mass/Vol] 7.4 g/dL 6.4-8.2 [facility] Sodium [Moles/Vol] 139 mmol/L 136-145 [facility] - Chemistry and C hemistry - challengeOrdered By: Rolly Clancy on 10-27-2022 ALP [Catalytic activity/Vol] 64 U/L 45-117 [facility] ALT [Catalytic activity/Vol] 24 U/L 13-56 [facility] CO2 [Moles/Vol] 32.0 mmol/L 21.0-32.0 [facility] Globulin (S) [Mass/Vol] 3.8 g/dL 2.2-4.2 [facility] Urea nitrogen/Creatinine [Mass ratio] 21.4 mg/mg 10-20 [facility] No Panel InformationOrdered By: Rolly Clancy on 10-27-2022 Estimated GFR (MDRD) Amer 66 mL/min >60 [facility] Comment on above: GFR Calc Estimated GFR (MDRD) Non-Af Amer 54 mL/min >60 [facility] Comment on above: Non- GFR Calc Vitamin D 25-Hydroxy 84.2 ng/mL [facility] Comment on above: Vitamin D 25(OH) Sta tus Range Deficiency <20 ng/mL (50nmol/L) Insufficiency 20 - 30 ng/mL (50 - 75 nmol/L) Sufficiency 30 - 100 ng/mL (75 - 250 nmol/L) Toxicity >100 ng/mL (>250 nmol/L) Serum or plasma albumin marisa urement (mass/volume)Ordered By: Rolly Clancy on 10-27-2022 Albumin [Mass/Vol] 3.6 g/dL 3.2-5.0 [facility] Serum or plasma albumin/glob ulin mass ratioOrdered By: Rolly Clancy on 10-27-2022 Albumin/Globulin [Mass ratio] 0.9 {ratio} 0.9-2.4 [facility] Serum or plasma calcium marisa urement (mass/volume)Ordered By: Rolly Clancy on 10-27-2022 Calcium [Mass/Vol] 9.1 mg/dL 8.5-10.1 [facility] Serum or plasma creatinine m easurement (mass/volume)Ordered By: Rolly Clancy on 10-27-2022 Creatinine [Mass/Vol] 1.12 mg/dL 0.55-1.02 [facility] Comment on above: The validity of the calculated GFR & GFRAA in patients over 70 years has not been determined. Clinical correlation is essential. Serum or plasma urea nitroge n measurement (mass/volume)Ordered By: Rolly Clancy on 10-27-2022 Urea nitrogen [Mass/Vol] 24 mg/dL 7-18 [facility] Thin prep Papanicolaou smear with manual screeningOrdered By: Rolly Clancy on 10-27-2022 Thin prep Papanicolaou smear with manual screening 24 U/L 15-37 [facility] Thin prep Papanicolaou smear with manual screening 2 5-15 [facility] Cervical or vagninal specime n microscopic examination by cytology stain (reported asOrdered By: Farrah Alfaro on 10-19-2022 Cytology report Cyto stain Doc (Cvx/Vag) Comment . [facility] Comment on above: The Pap smear is a s creening test designed to aid in thedetection of premalignant and malignant conditions of theuterine cervix. It is not a diagnostic procedure andshould not be used as the sole means of detecting cervicalcancer. Both false-positive and false-negative reports dooccur. Detection in cervical specim en of any of human papilloma virus (HPV) 16, 18, 31, 33,Ordered By: Farrah Alfaro on 10-19-2022 HPV 16+18+31+33+35+39+45+ 51+52+56+58+59+66+68 DNA Probe+sig amp Ql (Cvx) Negative Negative [facility] Comment on above: This nucleic acid am plification test detects fourteen high- risk HPV types (16,18,31,33,35,39,45,51,52,56,58,59,66,68)without differentiation. Laboratory - CytologyOrdered By: Farrah Alfaro on 10-19-2022 Deodorizer Operator Cyto stain Nom (Cvx/Vag) [ID] Comment . [facility] Comment on above: Federico Prieto totechnologist (ASCP) Laboratory - Miscellaneous t estsOrdered By: Farrah Alfaro on 10-19-2022 Service comment (Unsp spec) [Interp] Comment . [facility] Comment on above: This liquid based Th inPrep(R) pap test was screened withthe use of an image guided system. Service comment (Unsp spec) [Interp] . . [facility] Liquid-based cerv Pap + CT/G C by POLLY w reflex to high-risk HPV for ASCUSOrdered By: Farrah Alfaro on 10-19-2022 Cytology report Cyto stain.thin prep Doc (Cvx/Vag) Comment . [facility] Comment on above: Criteria not met, HP V Genotype not performed.Performed at: - [address] [id number] Director: Mirna Gonzalez MD, Phone: [phone] at: =[facility] [id number] Director: Mirna Gonzalez MD, Phone: [phone] No Panel InformationOrdered By: Farrah Alfaro on 10-19-2022 Pathology report final diagnosis Narrative Comment . [facility] Comment on above: NEGATIVE FOR INTRAEP ITHELIAL LESION OR MALIGNANCY.CELLULAR CHANGES ASSOCIATED WITH ATROPHY ARE PRESENT. No Panel Informationon 10-29 Parathyroid Hormone (Intact) 30.0 pg/mL 18.4-80.1 [facility] Work Phone: Thyroid Stimulating Hormone (TSH) 1.74 uIU/mL 0.358-3.74 [facility] Work Phone: Cervical or vagninal specime n microscopic examination by cytology stain (reported ason 09-07-2021 Cytology report Cyto stain Doc (Cvx/Vag) Comment . [facility] Work Phone: Comment on above: The Pap smear is a s creening test designed to aid in thedetection of premalignant and malignant conditions of theuterine cervix. It is not a diagnostic procedure andshould not be used as the sole means of detecting cervicalcancer. Both false-positive and false-negative reports dooccur. Detection in cervical specim en of any of human papilloma virus (HPV) 16, 18, 31, 33,on 09-07-2021 HPV 16+18+31+33+35+39+45+ 51+52+56+58+59+66+68 DNA Probe+sig amp Ql (Cvx) Negative Negative [facility] Work Phone: Comment on above: This nucleic acid am plification test detects fourteen high- risk HPV types (16,18,31,33,35,39,45,51,52,56,58,59,66,68)without differentiation.Performed at: - [facility] [id number] Director: Mirna Gonzalez MD, Phone: [phone] at: = - [facility] [id number] Director: Mirna Gonzalez MD, Phone: [phone] Laboratory - Cytologyon 08-16 Deodorizer Operator Cyto stain Nom (Cvx/Vag) [ID] Comment . [facility] Work Phone: Comment on above: Federico Yates totechnologist Recommended follow-up Cyto stain Nom (Cvx/Vag) Comment . [facility] Work Phone: Comment on above: Suggest follow up as clinically appropriate. Laboratory - Miscellaneous t estson 09-07-2021 Service comment (Unsp spec) [Interp] TNP [facility] Work Phone: Comment on above: Test not performedTh e Thin Prep(R) Dispatcher Motor Vehicle was unable to read this specimen.Therefore a manual review was performed. Service comment (Unsp spec) [Interp] . . [facility] Work Phone: No Panel Informationon 09-07 Pap Smear Specimen Adequacy Comment . [facility] Work Phone: Comment on above: Specimen processed a nd examined but unsatisfactory for evaluation ofepithelial abnormality because of insufficient cellularity. Pathology report final diagnosis Narrative Comment . [facility] Work Phone: Comment on above: UNSATISFACTORY FOR E VALUATION. Absolute lymphocyte counton 08-16-2021 Lymphocytes Auto (Unsp spec) [#/Vol] 2.56 10*3/uL 0.83-4.51 [facility] Work Phone: Basophil percentageon 2021 Basophils/100 WBC (Bld) 0.9 % 0-1 [facility] Work Phone: Bilirubin [Mass/Vol] 0.50 mg/dL 0.20-1.00 [facility] Work Phone: Comment on above: For patients on eltr ombopag therapy, use of Dimension [place] TBIL is not recommended. Chloride [Moles/Vol] 105 mmol/L 98-107 [facility] Work Phone: Cholesterol [Mass/Vol] 164 mg/dL <200 [facility] Work Phone: Comment on above: <200 mg/dL Desirable 200-240 mg/dL Borderline >240 mg/dL High Risk Eosinophils/100 WBC (Bld) 3.0 % 0-5 [facility] Work Phone: Glucose [Mass/Vol] 99 mg/dL 74-106 [facility] Work Phone: Neutrophils (Bld) [#/Vol] 3.1 10*3/uL 2.0-7.7 [facility] Work Phone: Neutrophils/100 WBC (Bld) 47.1 % 47-70 [facility] Work Phone: Potassium [Moles/Vol] 4.9 mmol/L 3.5-5.1 [facility] Work Phone: Protein [Mass/Vol] 7.6 g/dL 6.4-8.2 [facility] Work Phone: Sodium [Moles/Vol] 139 mmol/L 136-145 [facility] Work Phone: Triglyceride [Mass/Vol] 65 mg/dL <199 [facility] Work Phone: Comment on above: The drugs N-Acetylcy steine and Metamizole may falsely depress this assay.Serum Triglycerides Reference Interval Normal <150 mg/dL Borderline high 150 - 199 mg/dL High 200 - 499 mg/dL Very High > or = 500 mg/dL WBC (Bld) [#/Vol] 6.6 10*3/uL 4.4-11.0 [facility] Work Phone: Blood erythrocytes count (nu mber/volume)on 08-16-2021 RBC (Bld) [#/Vol] 4.43 10*6/uL 4.2-5.4 [facility] Work Phone: Blood hemoglobin measurement (mass/volume)on 08-16-2021 Hemoglobin (Bld) [Mass/Vol] 12.9 g/dL 12.0-15.0 [facility] Work Phone: Blood lymphocytes/100 leukoc yteson 08-16-2021 Lymphocytes/100 WBC (Bld) 38.7 % 19-41 [facility] Work Phone: Blood monocytes/100 leukocyt eson 08-16-2021 Monocytes/100 WBC (Bld) 9.8 % 0-10 [facility] Work Phone: Blood platelet mean volumeon 08-16-2021 Platelet mean volume (Bld) [Entitic vol] 10.9 fL 6.2-12.0 [facility] Work Phone: Determination of erythrocyte mean corpuscular volume (MCV)on 08-16-2021 MCV (RBC) [Entitic vol] 88.9 fL 81-99 [facility] Work Phone: Hematocrit Auto (Bld) [Volum e fraction]on 08-16-2021 Hematocrit (Bld) [Volume fraction] 39.4 % 37-47 [facility] Work Phone: Laboratory - Chemistry and C hemistry - challengeon 08-16-2021 ALP [Catalytic activity/Vol] 81 U/L 45-117 [facility] Work Phone: ALT [Catalytic activity/Vol] 33 U/L 13-56 [facility] Work Phone: CO2 [Moles/Vol] 29.0 mmol/L 21.0-32.0 [facility] Work Phone: Globulin (S) [Mass/Vol] 3.7 g/dL 2.2-4.2 [facility] Work Phone: Urea nitrogen/Creatinine [Mass ratio] 16.8 mg/mg 10-20 [facility] Work Phone: Laboratory - Hematology and Cell countson 08-16-2021 Erythrocyte distribution width (RBC) [Entitic vol] 42.0 fL 35.1-43.9 [facility] Work Phone: Erythrocyte distribution width (RBC) [Ratio] 12.7 % 11.6-14.6 [facility] Work Phone: Immature granulocytes/100 WBC (Bld) 0.500 % 0.0-0.9 [facility] Work Phone: Comment on above: IG% - Immature Granu locytes (promyelocytes, myelocytes and metamyelocytes) > 1% indicates that a LEFT SHIFT is Present. MCH (RBC) [Entitic mass] 29.1 pg 27.0-32.0 [facility] Work Phone: Nucleated RBC/100 WBC (Bld) [Ratio] 0 % 0-5 [facility] Work Phone: MCHC Auto (RBC) [Mass/Vol]on 08-16-2021 MCHC (RBC) [Mass/Vol] 32.7 g/dL 32-36 [facility] Work Phone: No Panel Informationon 08-16 Estimated GFR (MDRD) Amer 85 mL/min >60 [facility] Work Phone: Comment on above: GFR Calc Estimated GFR (MDRD) Non-Af Amer 71 mL/min >60 [facility] Work Phone: Comment on above: Non- GFR Calc Vitamin D 25-Hydroxy 54.3 ng/mL [facility] Work Phone: Comment on above: Vitamin D 25(OH) Sta tus Range Deficiency <20 ng/mL (50nmol/L) Insufficiency 20 - 30 ng/mL (50 - 75 nmol/L) Sufficiency 30 - 100 ng/mL (75 - 250 nmol/L) Toxicity >100 ng/mL (>250 nmol/L) Platelets bldon 08-16-2021 Platelets (Bld) [#/Vol] 315 10*3/uL 150-450 [facility] Work Phone: Serum or plasma albumin marisa urement (mass/volume)on 08-16-2021 Albumin [Mass/Vol] 3.9 g/dL 3.2-5.0 [facility] Work Phone: Serum or plasma albumin/glob ulin mass ratioon 08-16-2021 Albumin/Globulin [Mass ratio] 1.1 {ratio} 0.9-2.4 [facility] Work Phone: Serum or plasma calcium marisa urement (mass/volume)on 08-16-2021 Calcium [Mass/Vol] 9.7 mg/dL 8.5-10.1 [facility] Work Phone: Serum or plasma cholesterol in HDL measurement (mass/volume)on 08-16-2021 Cholesterol in HDL [Mass/Vol] 62 mg/dL >40 [facility] Work Phone: Comment on above: The drugs N-Acetylcy steine and Metamizole may falsely depress this assay. Reference Range HDL <40 mg/dL Low HDL Cholesterol HDL >or= 60 mg/dL High HDL Cholesterol Serum or plasma cholesterol in VLDL measurement (mass/volume)on 08-16-2021 Cholesterol in VLDL [Mass/Vol] 13 mg/dL 5-40 [facility] Work Phone: Serum or plasma creatinine m easurement (mass/volume)on 08-16-2021 Creatinine [Mass/Vol] 0.89 mg/dL 0.55-1.02 [facility] Work Phone: Comment on above: The validity of the calculated GFR & GFRAA in patients over 70 years has not been determined. Clinical correlation is essential. Serum or plasma low density lipoprotein (LDL) cholesterol measurement (mass/volume)on 08-16-2021 Cholesterol in LDL [Mass/Vol] 89 mg/dL 0-130 [facility] Work Phone: Serum or plasma urea nitroge n measurement (mass/volume)on 08-16-2021 Urea nitrogen [Mass/Vol] 15 mg/dL 7-18 [facility] Work Phone: Thin prep Papanicolaou smear with manual screeningon 08-16-2021 Thin prep Papanicolaou smear with manual screening 24 U/L 15-37 [facility] Work Phone: Thin prep Papanicolaou smear with manual screening 5 5-15 [facility] Work Phone: C-REACTIVE PROTEIN ([id number])on 06-13-2018 CRP mass conc 1.1 mg/L Normal 0.0-4.9 [facility] Work Phone: Comment on above: PATIENT NOT FASTINGP ERFORMED BY: CB [facility] [id number] [facility] [id number] BY: BN [facility] [address] [id number] CALCIUM SERUM ([id number])on 05-19 Calcium mass conc 10.4 mg/dL Abnormal 8.7-10.2 [facility] Work Phone: Comment on above: PATIENT NOT FASTINGP ERFORMED BY: CB [facility] [id number] [facility] [place] [id number] BY: [address] [id number] CBC (AUTO) ([id number])on 019 Erythrocyte distribution width Ratio (RBC) 13.3 % Normal 12.3-15.4 [facility] Work Phone: Comment on above: PATIENT NOT FASTINGP ERFORMED BY: CB [facility] [id number] [facility] [id number] BY: [address] [id number] Hematocrit Volume Fraction (Bld) 39.2 % Normal 34.0-46.6 [facility] Work Phone: Comment on above: PATIENT NOT FASTINGP ERFORMED BY: CB [facility] Gdsiap2508 [facility] [id number] BY: [facility] [id number] Hemoglobin mass conc (Bld) 13.1 g/dL Normal 11.1-15.9 [facility] Work Phone: Comment on above: PATIENT NOT FASTINGP ERFORMED BY: CB [facility] Mcrreq7672 [facility] [id number] BY: [address] [id number] MCH Entitic mass (RBC) 28.5 pg Normal 26.6-33.0 [facility] Work Phone: Comment on above: PATIENT NOT FASTINGP ERFORMED BY: CB [facility] Ctmrmq4608 [facility] [id number] BY: [address] [id number] MCHC mass conc (RBC) 33.4 g/dL Normal 31.5-35.7 [facility]: Comment on above: PATIENT NOT FASTINGP ERFORMED BY: CB [facility] Khamuw7068 [facility] [id number] BY: [address] [id number] MCV Entitic volume (RBC) 85 fL Normal 79-97 [facility] Work Phone: Comment on above: PATIENT NOT FASTINGP ERFORMED BY: CB [facility] Mafgqn1489 [facility] [id number] BY: [address] [id number] Platelets #/vol (Bld) 242 {x10E3/uL} Normal 150-379 [facility] Work Phone: Comment on above: PATIENT NOT FASTINGP ERFORMED BY: CB [facility] Jcjgku7530 [facility] [id number] BY: Lab[address] [id number] RBC #/vol (Bld) 4.60 {x10E6/uL} Normal 3.77-5.28 [facility]: Comment on above: PATIENT NOT FASTINGP ERFORMED BY: CB [facility] Gnpmyh6805 [facility] [id number] BY: Lab[address] [id number] WBC #/vol (Bld) 5.9 {x10E3/uL} Normal 3.4-10.8 [facility] Internal Medicine Work Phone: Comment on above: PATIENT NOT FASTINGP ERFORMED BY: CB [facility] Tvefja2029 [facility] [id number] BY: [address] [id number] HEPATIC FUNCTION PANEL ([id number])on 06-13-2018 Albumin mass conc 4.7 g/dL Normal 3.5-5.5 [facility] Internal Medicine Work Phone: Comment on above: PATIENT NOT FASTINGP ERFORMED BY: CB [facility] Xpkopb3117 Martinez Roadblin [place] [id number] BY: [address] [id number] ALP enzyme act/vol 79 [iU]/L Normal 39-117 [facility] Internal Medicine Work Phone: Comment on above: PATIENT NOT FASTINGP ERFORMED BY: CB [facility] Hdvvsr8156 [facility]As[facility] Hospitalin [place] [id number] BY: [facility] [id number] ALT enzyme act/vol 20 [iU]/L Normal 0-32 [facility] Internal Medicine Work Phone: Comment on above: PATIENT NOT FASTINGP ERFORMED BY: CB [facility] Sftias8362 [facility] [place] [id number] BY: [address] [id number] AST enzyme act/vol 20 [iU]/L Normal 0-40 [facility] Internal Medicine Work Phone: Comment on above: PATIENT NOT FASTINGP ERFORMED BY: CB [facility] Xsugdn8387 [facility] [id number] BY: [facility] [id number] Bilirubin mass conc 0.5 mg/dL Normal 0.0-1.2 [facility] Internal Medicine Work Phone: Comment on above: PATIENT NOT FASTINGP ERFORMED BY: CB [facility] Cjgmmj5566 [facility] [place] [id number] BY: [address] [id number] Bilirubin.direct mass conc 0.15 mg/dL Normal 0.00-0.40 [facility] Work Phone: Comment on above: PATIENT NOT FASTINGP ERFORMED BY: CB [facility] Ndjfwx2838 Martinez RoadDublin [place] [id number] BY: [facility] [address] [id number] PARATHORMONE ([id number])on 06-13 Parathyrin.intact mass conc 25 pg/mL Normal 15-65 [facility] Work Phone: Comment on above: PATIENT NOT FASTINGP ERFORMED BY: CB [facility] Odrunt2127 Martinez RoadDublin [place] [id number] BY: [facility] [address] [id number] PHOSPHORUS (73443)on 019 Phosphate mass conc 4.1 mg/dL Normal 2.5-4.5 Compr [facility] Internal Medicine Work Phone: Comment on above: PATIENT NOT FASTINGP ERFORMED BY: CB [facility] Fmpmuh8313 Martinez RoadDublin [place] [id number] BY: [facility] [id number] SED RATE ERYTHROCYTE ([id number]) on 06-13-2018 ESR Velocity (Bld) 3 mm/h Normal 0-32 Compre [facility] Internal Medicine Work Phone: Comment on above: PATIENT NOT FASTINGP ERFORMED BY: CB [facility] Tnjgow7356 Martinez RoadDublin [place] [id number] BY: [facility] [address] [id number] SPEP ([id number])on 06-13-2018 Albumin mass conc 4.2 g/dL Normal 2.9-4.4 [facility] Work Phone: Comment on above: PATIENT NOT FASTINGP ERFORMED BY: CB [facility] Cnvbwy3936 Martinez RoadDublin [place] [id number] BY: [facility] [address] [id number] Albumin/Globulin mass ratio 1.4 {ratio} Normal 0.7-1.7 [facility] Work Phone: Comment on above: PATIENT NOT FASTINGP ERFORMED BY: CB [facility] Vbrper7456 [facility] [id number] BY: [address] [id number] Alpha 1 globulin Elph mass conc 0.2 g/dL Normal 0.0-0.4 [facility] Work Phone: Comment on above: PATIENT NOT FASTINGP ERFORMED BY: CB [facility] Qrzeda4077 [facility] [id number] BY: [facility] [address] [id number] Alpha 2 globulin Elph mass conc 0.8 g/dL Normal 0.4-1.0 [facility] Work Phone: Comment on above: PATIENT NOT FASTINGP ERFORMED BY: CB [facility] Oviype4151 [facility] [id number] BY: [facility] [id number] Beta globulin Elph mass conc 0.9 g/dL Normal 0.7-1.3 [facility] Work Phone: Comment on above: PATIENT NOT FASTINGP ERFORMED BY: CB [facility] Wcyjil0428 [facility] [id number] BY: [address] [id number] Gamma globulin Elph mass conc 1.2 g/dL Normal 0.4-1.8 [facility] Work Phone: Comment on above: PATIENT NOT FASTINGP ERFORMED BY: CB [facility] Pdaxmn8914 [facility] [id number] BY: [address] [id number] Globulin mass conc (S) 3.1 g/dL Normal 2.2-3.9 [facility] Work Phone: Comment on above: PATIENT NOT FASTINGP ERFORMED BY: CB [facility] Teeofp3920 [address] RoadDublin [place] [id number] BY: [address] [id number] Laboratory comment Jorge (Report) [facility] Normal [facility] Work Phone: Comment on above: Protein electrophore sis scan will follow via computer, mail, orcourier delivery. PATIENT NOT FASTINGP ERFORMED BY: CB [facility] Pzdzog3813 [address] RoadDublin [place] [id number] BY: [address] [id number] Laboratory report . Normal Compre[facility] ens[facility] Work Phone: Comment on above: PATIENT NOT FASTINGP ERFORMED BY: CB [facility] Wdhthd7296 [address] RoadDublin [place] [id number] BY: [address] [id number] Protein mass conc 7.3 g/dL Normal 6.0-8.5 Compreh ensive [facility] Work Phone: Comment on above: PATIENT NOT FASTINGP ERFORMED BY: CB [facility] Hikzuo3677 [address] RoadDublin [place] [id number] BY: [facility] [id number] Protein.monoclonal Elph mass conc Not Observed Normal [facility] Work Phone: Comment on above: PATIENT NOT FASTINGP ERFORMED BY: CB [facility] Jzgpcq9969 [address] RoadDublin [place] [id number] BY: [address] [id number] TSH ([id number])on 06-13-2018 Thyrotropin Qn 2.310 {uIU/mL} Normal 0.450-4.500 Compr ehens[facility] Work Phone: Comment on above: PATIENT NOT FASTINGP ERFORMED BY: CB [facility] Ckuzbp4769 [address] RoadDublin [place] [id number] BY: [place] [id number] [facility] [id number] VITAMIN D, 1, 25-DIHYDROXY ( 03775)on 06-13-2018 Calcitriol mass conc 66.9 pg/mL Normal 19.9-79.3 Comp [facility] Internal Medicine Work Phone: Comment on above: PATIENT NOT FASTINGP ERFORMED BY: [facility] Nhxmyq5919 [facility] [id number] BY: [address] [id number] Vitamin D Hydroxy (77510)on 06-13-2018 25-Hydroxyvitamin D2+25-Hydroxyvitamin D3 mass conc 34.0 ng/mL Normal 30.0-100.0 [facility] Work Phone: Comment on above: Vitamin D deficiency has been defined by the [place] ofThe [facility]cine and an Endocrine Society practice guideline as alevel of serum 25-OH vitamin D less than 20 ng/mL (1,2).The Endocrine Society went on to further define vitamin Dinsufficiency as a level between 21 and 29 ng/mL (2).1. IOM ([place] of Medicine). 2010. Dietary reference intakes for calcium and D. [place]: The National Academies Press.2. Fabiana MF, Valeriano OCONNELL, [place] MEAD, et al. Evaluation, treatment, and prevention of vitamin D deficiency: an Endocrine Society clinical practice guideline. JCEM. 2010; 96(7):1911-30. PATIENT NOT FASTINGP ERFORMED BY: Coiney Rfngsj9966 [facility] [id number] BY: [place] [id number] [facility] [id number] GLUCOSE ([id number])on 03-30-2018 Glucose [Mass/Vol] 97 mg/dL Normal 65-99 [facility] Internal Medicine Work Phone: Comment on above: PATIENT WAS FASTINGP ERFORMED BY: Coiney Joslcl0511 [facility] [id number] LIPID PANEL (42352)on 2017 Cholesterol [Mass/Vol] 164 mg/dL Normal 100-199 [facility] Work Phone: Comment on above: PATIENT WAS FASTINGP ERFORMED BY: MARISELA FeleciaShaylee PereyraXvfoxv2140 [facility] [id number] Cholesterol in HDL [Mass/Vol] 61 mg/dL Normal [facility] Work Phone: Comment on above: PATIENT WAS FASTINGP ERFORMED BY: MARISELA Tijerina6370 [facility] [id number] Cholesterol in LDL [Mass/Vol] 84 mg/dL Normal 0-99 [facility] Work Phone: Comment on above: PATIENT WAS FASTINGP ERFORMED BY: MARISELA Tijerina6370 [facility] [id number] Cholesterol in LDL/Cholesterol in HDL [Mass ratio] 1.4 {ratio} Normal 0.0-3.2 [facility] Work Phone: Comment on above: LDL/HDL Ratio Men Wo men 1/2 Avg.Risk 1.0 1.5 Avg.Risk 3.6 3.2 2X Avg.Risk 6.2 5.0 3X Avg.Risk 8.0 6.1 PATIENT WAS FASTINGP ERFORMED BY: MARISELA Moran Hzerxm8257 [facility] [id number] Cholesterol in VLDL [Mass/Vol] 19 mg/dL Normal 5-40 [facility] Work Phone: Comment on above: PATIENT WAS FASTINGP ERFORMED BY: MARISELA Pereyralin6370 [facility] [id number] Triglyceride [Mass/Vol] 96 mg/dL Normal 0-149 [facility] Work Phone: Comment on above: PATIENT WAS FASTINGP ERFORMED BY: MARISELA LabShaylee PereyraOmmvgh2568 [facility] [id number] Vital Signs Date Time Vital Sign Value Performing Clinician Facility 11-12-2024 13:00-0400 Body height 167.[address] Wagner Tubbs MD Work Phone: [facility] 11-12-2024 13:00-0400 Body mass index (BMI) [Ratio] 21.3 kg/m2 Dr. Wagner Tubbs MD Work Phone: [facility] 11-12-2024 13:00-0400 Body weight 59.[address] Wagner Tubbs MD Work Phone: [facility] 11-12-2024 13:00-0400 Diastolic blood pressure 86 mm[Hg] Dr. Wagner Tubbs MD Work Phone: [facility] 11-12-2024 13:00-0400 Heart rate 58 /min Dr. Wagner Tubbs MD Work Phone: [facility] 11-12-2024 13:00-0400 SaO2% (BldA) [Mass fraction] 99 % Dr. Wagner Tubbs MD Work Phone: [facility] 11-12-2024 13:00-0400 Systolic blood pressure 137 mm[Hg] Dr. Wagner Tubbs MD Work Phone: [facility] 11-11-2021 14:50-0400 Body height 167.[address] April Rocha Work Phone: [facility] Work Phone: 11-11-2021 14:50-0400 Body mass index (BMI) [Ratio] 208 kg/m2 Dr. April Rocha Work Phone: [facility] Work Phone: 11-11-2021 14:50-0400 Body temperature 97.5 [degF] Dr. April Rocha Work Phone: [facility] Work Phone: 11-11-2021 14:50-0400 Body weight 584.[address] April Rocha Work Phone: [facility] Work Phone: 11-11-2021 14:50-0400 Diastolic blood pressure 81 mm[Hg] Dr. April Rocha Work Phone: [facility] Work Phone: 11-11-2021 14:50-0400 Heart rate 65 /min Dr. April Rocha Work Phone: [facility] Work Phone: 11-11-2021 14:50-0400 Respiratory rate 12 /min Dr. April Rocha Work Phone: [facility] Work Phone: 11-11-2021 14:50-0400 SaO2% (BldA) [Mass fraction] 100 % Dr. April Rocha Work Phone: [facility] Work Phone: 11-11-2021 14:50-0400 Systolic blood pressure 127 mm[Hg] Dr. April Rocha Work Phone: [facility] Work Phone: 10-28-2021 10:29-0400 Body height 167.[address] April Rocha Work Phone: [facility] Work Phone: 10-28-2021 10:29-0400 Body mass index (BMI) [Ratio] 20.7 kg/m2 Dr. April Rocha Work Phone: [facility] Work Phone: 10-28-2021 10:29-0400 Body temperature 96.4 [degF] Dr. April Rocha Work Phone: [facility] Work Phone: 10-28-2021 10:29-0400 Body weight 58.[address] April Rocha Work Phone: [facility] Work Phone: 10-28-2021 10:29-0400 Diastolic blood pressure 70 mm[Hg] Dr. April Rocha Work Phone: [facility] Work Phone: 10-28-2021 10:29-0400 Heart rate 65 /min Dr. April Rocha Work Phone: [facility] Work Phone: 10-28-2021 10:29-0400 Respiratory rate 18 /min Dr. April Rocha Work Phone: [facility] Work Phone: 10-28-2021 10:29-0400 SaO2% (BldA) [Mass fraction] 100 % Dr. April Rocha Work Phone: [facility] Work Phone: 10-28-2021 10:29-0400 Systolic blood pressure 100 mm[Hg] Dr. April Rocha Work Phone: [facility] Work Phone: 10-27-2021 08:55-0400 Body temperature 97.2 [degF] Dr. April Rocha Work Phone: [facility] Work Phone: 10-27-2021 08:55-0400 Diastolic blood pressure 65 mm[Hg] Dr. April Rocha Work Phone: [facility] Work Phone: 10-27-2021 08:55-0400 Heart rate 59 /min Dr. April Rocha Work Phone: [facility] Work Phone: 10-27-2021 08:55-0400 Respiratory rate 18 /min Dr. April Rocha Work Phone: [facility] Work Phone: 10-27-2021 08:55-0400 SaO2% (BldA) [Mass fraction] 100 % Dr. April Rocha Work Phone: [facility] Work Phone: 10-27-2021 08:55-0400 Systolic blood pressure 101 mm[Hg] Dr. April Rocha Work Phone: [facility] Work Phone: 10-27-2021 07:36-0400 Body height 167.[address] April Rocha Work Phone: [facility] Work Phone: 10-27-2021 07:36-0400 Body mass index (BMI) [Ratio] 19.9 kg/m2 Dr. April Rocha Work Phone: [facility] Work Phone: 10-27-2021 07:36-04[address] Body weight [address] April Rocha Work Phone: [facility] Work Phone: 09-09-2021 11:10-0400 Body mass index (BMI) [Ratio] 20 kg/m2 Dr. April Rocha Work Phone: [facility] Work Phone: 09-09-2021 11:10-0400 Body weight 58.[address] April Rocha Work Phone: [facility] Work Phone: 09-09-2021 11:10-0400 Body height 170.[address] April Rocha Work Phone: [facility] Work Phone: 09-09-2021 11:10-0400 Body mass index (BMI) [Ratio] 20 kg/m2 Dr. April Rocha Work Phone: [facility] Work Phone: 09-09-2021 11:10-0400 Body weight 58.[address] April Rocha Work Phone: [facility] Work Phone: 08-16-2021 08:23-0400 Body mass index (BMI) [Ratio] 20 kg/m2 Dr. April Rocha Work Phone: [facility] Work Phone: 08-16-2021 08:23-0400 Body temperature 97.7 [degF] Dr. April Rocha Work Phone: [facility] Work Phone: 08-16-2021 08:23-0400 Body weight 58.[address] April Rocha Work Phone: [facility] Work Phone: 08-16-2021 08:23-0400 Diastolic blood pressure 72 mm[Hg] Dr. April Rocha Work Phone: [facility] Work Phone: 08-16-2021 08:23-0400 Heart rate 74 /min Dr. April Rocha Work Phone: [facility] Work Phone: 08-16-2021 08:23-0400 Respiratory rate 14 /min Dr. April Rocha Work Phone: [facility] Work Phone: 08-16-2021 08:23-0400 SaO2% (BldA) [Mass fraction] 99 % Dr. April Rocha Work Phone: [facility] Work Phone: 08-16-2021 08:23-0400 Systolic blood pressure 116 mm[Hg] Dr. April Rocha Work Phone: [facility] Work Phone: 08-16-2021 08:23-0400 Body height 170.[address] April Rocha Work Phone: [facility] Work Phone: 08-16-2021 08:23-0400 Body mass index (BMI) [Ratio] 20 kg/m2 Dr. April Rocha Work Phone: [facility] Work Phone: 08-16-2021 08:23-0400 Body temperature 97.7 [degF] Dr. April Rocha Work Phone: [facility] Work Phone: 08-16-2021 08:23-0400 Body weight 58.[address] April Rocha Work Phone: [facility] Work Phone: 08-16-2021 08:23-0400 Diastolic blood pressure 72 mm[Hg] Dr. April Rocha Work Phone: [facility] Work Phone: 08-16-2021 08:23-0400 Heart rate 74 /min Dr. April Rocha Work Phone: [facility] Work Phone: 08-16-2021 08:23-0400 Respiratory rate 14 /min Dr. April Rocha Work Phone: [facility] Work Phone: 08-16-2021 08:23-0400 SaO2% (BldA) [Mass fraction] 99 % Dr. April Rocha Work Phone: [facility] Work Phone: 08-16-2021 08:23-0400 Systolic blood pressure 116 mm[Hg] Dr. April Rocha Work Phone: [facility] Work Phone: 06-13-2018 09:01-0500 BMI (Body Mass Index) 20.52 kg/m2 April Rocha [facility] Work Phone: 06-13-2018 09:01-0500 Body weight 59.44 kg April Rocha [facility] Work Phone: 06-13-2018 09:01-0500 BP Diastolic 82 mm[Hg] April Rocha [facility] Work Phone: Comment on above: Patient Position: Sitting; Cuff Location : Left Arm; Cuff Size: Standard 06-13-2018 09:01-0500 BP Systolic 142 mm[Hg] April Rocha [facility] Internal Medicine Work Phone: Comment on above: Patient Position: Sitting; Cuff Location : Left Arm; Cuff Size: Standard 06-13-2018 09:01-0500 BSA (Body Surface Area) 1.69 m2 April Rocha [facility] Work Phone: 06-13-2018 09:01-0500 Height 170.18 cm April Rocha [facility] Medicine Work Phone: 06-13-2018 09:01-0500 Pulse (Heart Rate) 78 /min April Rocha [facility] Work Phone: Comment on above: Pattern: Regular 06-13-2018 09:01-0500 Pulse Oximetry 99 % April Rocha [facility] Work Phone: Comment on above: Room air 06-13-2018 09:01-0500 Respiratory Rate 18 /min April Rocha [facility] Medicine Work Phone: Comment on above: Pattern: Unlabored 06-13-2018 09:01-0500 Weight 59.44 kg April Rocha [facility] Work Phone: 03-30-2018 09:14-0500 BMI (Body Mass Index) 20.42 kg/m2 April Rocha [facility] Work Phone: 03-30-2018 09:14-0500 Body Temperature 96.1 [degF] April Rocha [facility] Work Phone: Comment on above: Method: Temporal 03-30-2018 09:14-0500 Body weight 59.14 kg April Farley [facility] Work Phone: 03-30-2018 09:14-0500 BP Diastolic 90 mm[Hg] April Rocha [facility] Work Phone: Comment on above: Patient Position: Sitting; Cuff Location : Left Arm; Cuff Size: Standard 03-30-2018 09:14-0500 BP Systolic 141 mm[Hg] Apirl Rocha [facility] Work Phone: Comment on above: Patient Position: Sitting; Cuff Location : Left Arm; Cuff Size: Standard 03-30-2018 09:14-0500 BSA (Body Surface Area) 1.69 m2 April Farley [facility] Work Phone: 03-30-2018 09:14-0500 Height 170.18 cm April Rocha [facility] Work Phone: 03-30-2018 09:14-0500 Pulse (Heart Rate) 72 /min April Rocha [facility] Work Phone: Comment on above: Pattern: Regular 03-30-2018 09:14-0500 Pulse Oximetry 99 % April Rocha [facility] Work Phone: Comment on above: Room air 03-30-2018 09:14-0500 Respiratory Rate 18 /min April Rocha [facility] Work Phone: Comment on above: Pattern: Unlabored 03-30-2018 09:14-0500 Weight 59.14 kg April Rocha [facility] Work Phone: Encounters Encounter Date Encounter Type Care Provider Facility Start: 11-12-2024 End: 11-12-[address] Rolly Clancy MD -[facility] Work Phone: Start: 11-12-2024 End: 11-12-[address] Wagner Tubbs MD Work Phone: -[facility] Start: 11-11-2024 End: 11-11-[address] Wagner Tubbs MD Work Phone: -[facility] Start: 11-11-2024 End: 11-11-[address] Rolly Clancy MD -[facility] Start: 11-11-2024 End: 11-11-2024 ambulatory Wagner Tubbs Facility:[facility] Start: 12-26-2023 Encounter for genera l adult medical examination without abnormal findings [facility] Start: 12-06-2023 End: 12-06-2023 ambulatory [facility] Facility:[facility] Start: 11-24-2023 End: 11-24-2023 ambulatory [facility] Facility:[facility] Start: 11-23-2023 End: 11-23-2023 ambulatory [facility] Facility:[facility] Start: 11-23-2023 End: 11-23-2023 ambulatory [facility] Facility:[facility] Start: 11-20-2023 End: 11-20-2023 ambulatory [facility] Facility:[facility] Start: 11-01-2022 End: 11-01-2022 ambulatory [facility] Work Phone: Start: 11-01-2022 End: 11-01-2022 Patient encounter procedure [facility] Work Phone: Start: 10-27-2022 End: 10-27-2022 ambulatory [facility] Work Phone: Start: 10-27-2022 End: 10-27-2022 Patient encounter procedure [facility] Work Phone: Start: 10-19-2022 End: 10-19-2022 ambulatory [facility] Work Phone: Start: 10-19-2022 End: 10-19-2022 Patient encounter procedure [facility]Laboratory, Specimen Work Phone: Start: 11-11-2021 End: 11-11-[address] April Rocha Work Phone: [facility]-Medical Out Start: 10-29-2021 End: 10-29-[address] April Rocha Work Phone: [facility]atory, [facility] Start: 10-28-2021 End: 10-28-[address] April Rocha Work Phone: [facility] Start: 10-27-2021 Non-patient / Non-visit Dr. Ciaran Rocha Work Phone: [facility] Start: 10-27-2021 End: 10-27-2021 Admission to same day surgery center Dr. April Rocha Work Phone: [facility]-Endoscopy Start: 09-09-2021 Non-patient / Non-visit Dr. Ciaran Rocha Work Phone: [facility] Start: 09-07-2021 End: 09-07-[address] April Rocha Work Phone: [facility]-Laboratory, Specimen Start: 08-26-2021 End: 08-26-[address] April Rocha Work Phone: [facility]-Outpatient Bone Densitometry Start: 08-16-[address] April Rocha Work Phone: [facility] Start: 08-16-2021 End: 08-16-2021 Encounter for general adult medical examination without abnormal findings Dr. April Rocha Work Phone: [facility] Start: 08-16-2021 End: 08-16-[address] April Rocha Work Phone: [facility] Start: 08-13-2021 Non-patient / Non-visit Dr. Ciaran Rocha Work Phone: [facility] Start: 06-18-2018 End: 06-18-2018 Lab Order April Farley Registered Dietetic Technician al Medicine Start: 06-13-2018 End: 06-13-2018 Office outpatient visit 40 minutes April Farley [facility] Start: 03-30-2018 Patient encounter procedure April Farley [facility] Start: 03-30-2018 End: 03-30-2018 Initial preventive medicine new patient 40-64yrs [facility] Start: 11-11-2017 End: 11-11-2017 Emergency department patient visit [facility] Procedures Date Procedure Procedure Detail Performing Clinician Start: 11-11-2024 Vitamin D, 25-hydrox y measurement Dr. Wagner Tubbs MD Work Phone: Comment on above: Vitamin D StatusDefi ciency: <20 ng/mL (50nmol/L)Insufficiency: 20-30 ng/mL (50-75 nmol/L)Sufficiency: 30-100 ng/mL (75-250 nmol/L)Toxicity: >100 ng/mL (>250 nmol/L) Start: 11-01-2022 Screening mammography Start: 10-27-[address] Sia Rocha Work Phone: Start: 08-26-2021 Dual energy X-ray absorptiometry Dr. April Rocha Work Phone: Start: 08-26-2021 Screening mammography Sarahi Rocha Work Phone: Start: 06-15-2018 End: 06-15-2018 Surgery Visit Report Comments: See Note; NOTES: [facility] [address] [place] [address]. 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 Is patient in pain?: No Allergies No Known Allergies Allergy (Unverified 06/15/18 09:13) Medications NK 06/15/18 [History Confirmed 06/15/18] PFSH Medical History Mass of right axilla (Acute) Abnormal mammogram (Acute) Abnormal ultrasound of breast (Acute) Lump of right breast (Acute) Surgical History No history of previous surgery (Acute) Family History Mother Arthritis Osteoporosis Father Arthritis Cancer bladder cancer and skin cancer Osteoporosis Social History Smoking Status: Never smoker alcohol intake: never substance use type: does not use HPI HPI HPI: NATALIE CHAWLA, is a 47 F who presents to the office today for surgical consultation today regarding a abnormal right breast mammogram and ultrasound. Patient was referred by Dr. April Rocha and a written copy of my surgical consult recommendations will be returned to her. 47-year-old female. A0. First child was born when she was 33. Menarche was at age 11. No previous breast biopsies. She was on oral contraceptive pills for approximately 15 years but quit 13 years ago. Family history is negative for breast cancer. Dating all the way back to May 27, 2010 at [facility] in [facility] she had bilateral mammography. At that point an ultrasound was done as well. There was a 6.6 x 9.7 x 8.2 cm well marginated hypoechoic solid focus right axilla. The patient has had that followed with routine mammography. She had films performed at [facility] June 23, 2011 with benign findings no change. Her most recent bilateral mammogram and right breast ultrasound were performed at the [facility] on May 31, 2018. These set of images were compared back to June 26, 2012. There is a 1.3 cm well-defined nodule in the right axillary area on mammogram. Ultrasound was performed and demonstrates a 1 x 1.2 x 0.8 cm hypoechoic solid nodule. interpreted this as BI-RADS Category 4. The patient is absolutely able to palpate this area. She denies any change. No nipple discharge no bleeding. No tenderness. ROS General General: No weight change, appetite, fatigue, colon cancer, breast cancer or weakness HEENT HEENT: No difficulty swallowing, eye injury, eye surgery, swollen glands or hoarseness Endo Endocrine: No thyroid disease, diabetes mellitus, thyroid cancer, Hair loss, heat intolerance or cold intolerance Skin Skin: No rash or changing moles Breast Breast: Yes right breast lump, abnormal mammogram and abnormal US; no left breast lump, nipple discharge, breast pain or breast enlargement Musc Musculoskeletal: No back problems, arthritis, rheumatoid arthritis, gout or joint pain Cardio Cardiovascular: No murmur, pacemaker, heart disease, atrial fibrillation, high blood pressure, heart attack, heart stent, palpitations, shortness of breat with exertion or chest pain Psych Psychiatric: No depression, anxiety or hearing voices Resp Respiratory: No shortness of breath, No sleep apnea, No cough, No COPD, No asthma, No emphysema, No wheezing Gastro Gastrointestinal: No abdominal pain, No nausea or vomiting, No diarrhea, No constipation, No blood in stool, No acid reflux, No hemorrhoids, No ulcers, No gallbladder problem, No black,tarry stools Jez Hematologic: No blood thinners, No blood disorders, No bleeding, No anemia, No blood clots Neuro Neurologic: No system reviewed and no additional complaints, except as docu, No as per HPI, No abnormal walking, No abnormal hearing, No abnormal movements, No abnormal speech, No behavioral changes, No burning sensations, No confusion, No seizure-like activity, No unsteadiness, No dizziness, No localized weakness, No frequent falls, No headache(s), No lack of coordination, No loss of vision, No memory loss, No numbness, No other visual disturbances, No radiating pain, No restless legs, No sensory deficit, No fainting, No tingling, No tremor(s), No weakness, No other Exam Chest Breast Palpation: No nipple discharge Other: Right breast: Diffuse mild fibrous rubbery change throughout no focal concerning mass no nipple discharge no distortion. No supraclavicular adenopathy. Within the right axilla just posterior to the anterior axillary line there is a very easily palpable 1 cm diameter subdermal nodule which is not fixed. Left breast: No focal mass. No nipple discharge. No axillary clavicular adenopathy Cardio Heart Sounds: no murmurs Assessment AND Plan Problems 1. Mass of right axilla R22.31 Plan 47-year-old female. I have reviewed her mammographic and ultrasonographic imaging as well as her clinical exam. I have tried to reassure the patient and her that this finding essentially has been unchanged for 8 years. She is very slender with a BMI of 20. I cannot access this small nodule with a core biopsy because of the thin depth. Not clear to me as to whether this is a subcutaneous nodule or a dermal nodule or possibly a lymph node. It does not have the distinct characteristics of a lymph node. I do not believe that final aspiration or needle core biopsy really is applicable here because of the location and very shallow depth. I have simply offered her a complete excision of the area and I believe I can accomplish that in an office setting under local anesthesia. I discussed the technique, benefit, risks, alternatives. I believe that that would provide us then with definitive tissue diagnosis and definitive eradication of the area. I have instructed both the patient's and the patient that I believe that this area is clinically benign. That would make most sense based upon the very prolonged history. It would appear though now that her mammograms are interpreted as BI-RADS Category 4 that she will have ongoing imaging difficulties until we achieve a definitive diagnosis. 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 He said opportunity to ask and have questions answered in both the patient and her are comfortable with this definitive approach. They are aware that I would be out of town next week. We will schedule and expedite her care upon my return. I very much appreciate the kind opportunity of assisting with her surgical care CC: Dr. April Padilla M.D., F.A.C.S. Coding Level of Care Code Exp prob focused,strt fwd Diagnoses Mass of right axilla R22.31 06/15/18 1157 <Electronically signed by Kel Padilla MD> Date Kel Padilla MD Cosigner Signature: Date (if applicable) CC: April Clark Start: 06-05-2018 End: 06-05-2018 Breast Limited Unilateral Comments: See Note; NOTES: [facility] [address] [place] [address] Breast Limited Unilateral MR#: [id number] Acct: [id number] Name: NATALIE CHAWLA Rep #: [id number] : 1970 F 47 From: Mikel Schmidt MD PCP: April Rocha DO Status: REG CLI Study: Breast Limited Unilateral Date of Exam: 06/05/18 Exam# [id number] Ordering Dr: April Rocha DO STUDY: ULTRASOUND BREAST - RIGHT REASON FOR EXAM: Female, 47 years old. Abnormal screening mammogram. TECHNIQUE: Axial and longitudinal images of the RIGHT breast were performed with a high resolution ultrasound transducer. COMPARISON: Comparison is made with prior mammogram dated May 31, 2018. FINDINGS: RIGHT Breast: The mammographic abnormality corresponds to a 1 cm x 1.2 cm x 0.8 cm hypoechoic solid nodule. Small amount of blood flow is seen along its periphery. A biopsy is recommended for further evaluation. US/Breast Limited Unilateral IMPRESSION: The mammographic and mildly corresponds to a 1 cm x 1.2 cm x 0.8 cm hypoechoic solid nodule is possible. A biopsy is recommended for further evaluation. ASSESSMENT CATEGORY: BIRADS Category 4: Suspicious - Biopsy Should Be Considered. A letter regarding these results will be sent to the patient by the facility within 30 days. Electronically Signed: Mikel Schmidt MD at 10:59 EST , Service support , CC: April Rocha DO Board Liner Operator: Signed April Rocha Work Phone: Start: 05-31-2018 End: 06-01-2018 Dexa Bone Density Study Comments: See Note; NOTES: [facility] [address] [place] [address] Dexa Bone Density Study MR#: [id number] Acct: [id number] Name: NATALIE CHAWLA Rep #: [id number] : 1970 F 47 From: Mikel Schmidt MD PCP: April Rocha DO Status: REG CLI Study: Dexa Bone Density Study Date of Exam: 05/31/18 Exam# [id number] Ordering Dr: April Rocha DO STUDY: DUAL ENERGY X-RAY ABSORPTIOMETRY / DXA REASON FOR EXAM: Female, 47 years old. The patient is postmenopausal. No loss of height. TECHNIQUE: Bone Mineral Density (BMD) measurements of lumbar spine and bilateral hips were obtained. COMPARISON: None. FINDINGS: Lumbar Spine (L1-L4): g/cm2 (0.842) / T-score (-2.8) / Z-score (-2.5) Findings are suggestive of osteoporosis with a high fracture risk. Left Femur Total: g/cm2 (0.698) / T-score (-2.5) / Z-score (-2.0) Left Femoral Neck: g/cm2 (0.699) / T-score (-2.4) / Z-score (-1.7) Right Femur Total: g/cm2 (0.723) / T-score (-2.3) / Z-score (-1.8) Right Femoral Neck: g/cm2 (0.718) / T-score (-2.3) / Z-score (-1.6) BD/Dexa Bone Density Study IMPRESSION: The patient is considered osteoporotic as outlined below according to World [employer] Organization (WHO) criteria with a high fracture risk. Reference Information: The T-score is the number of standard deviations above or below the standard which is normal for young adults at their peak bone mineral density. The World Health Organization (WHO) interprets the T-scores as follows: Above -1 Normal bone density Between -1 and -2.5 Osteopenia Equal to / or below -2.5 Osteoporosis As a practical clinical guideline, osteopenia may be graded as follows: Mild -1 through -1.5 Moderate -1.6 through -2.0 Severe -2.1 through -2.4 The Z-score is the number of standard deviations above or below age-matched controls. A Z-score of less than -1.5 would be considered abnormal. References: 1. NIH Osteoporosis and Related Bone Diseases http://www.osteo.org 2. International Society for Clinical Densitometry http://www.iscd.org 3. National Osteoporosis Foundation http://www.nof.org Electronically Signed: Mikel Schmidt MD at 9:08 EST , Service support , CC: April Rocha DO Board Liner Operator: Signed April Rocha Work Phone: Start: 05-31-2018 End: 06-01-2018 SCREENING MAMM (CAD), BILAT Comments: See Note; NOTES: [facility] [address] [place] [address] SCREENING MAMM (CAD), BILAT MR#: [id number] Acct: [id number] Name: NATALIE CHAWLA Rep #: [id number] : 1970 F 47 From: Mikel Schmidt MD PCP: April Rocha DO Status: [facility] CLI Study: SCREENING MAMM (CAD), BILAT Date of Exam: 05/31/18 Exam# [id number] Ordering Dr: April Rocha DO MAMMOGRAPHY - BILATERAL SCREENING REASON FOR EXAM: Female, 47 years old. Routine annual screening examination. PERTINENT HISTORY: Non-contributory. TECHNIQUE: Digital bilateral breast ryan (3D mammographic acquisition) in the CC and MLO projections. 2-D mediolateral oblique (MLO) and craniocaudad (CC) views of both breasts were obtained. CAD: Full Field Digital Mammography with Computer Added Detection was performed. COMPARISON: Comparison is made with prior outside examination dated June 26, 2012. FINDINGS: Breast Composition: The breasts are extremely dense, which lowers the sensitivity of mammography. There are no dominant masses or suspicious calcifications. 1.3 cm well-defined nodule in the right axillary region. This has increased in size as compared to prior study. Correlation with ultrasound is recommended. No other significant abnormalities are identified. BI/SCREENING MAMM (CAD), BILAT IMPRESSION: 1.3 cm well-defined nodule in the right axillary region as described. This has increased in size as compared to prior study. Correlation with ultrasound is recommended. ASSESSMENT CATEGORY: BIRADS Category 0: Incomplete. Need additional imaging evaluation. A letter regarding these results will be sent to the patient by the facility within 30 days. Approximately 10% of breast cancers are not detected by mammography. A normal mammogram should not delay biopsy of a clinically suspicious abnormality. [id number] Electronically Signed: Mikel Schmidt MD at 15:06 EST , Service support , CC: April Rocha DO Board Liner Operator: Signed April Rocha Work Phone: Start: 03-30-2018 End: 03-30-2018 No Known Past Surgical History Isadora Miranda Ophthalmic examinati on and evaluation Isadora Miranda Comment on above: 2016 Ophthalmic examinati on and evaluation Georges Garland Comment on above: 2016 Screening mammography Isadora Miranda Comment on above: 2015 Screening mammography Georges Garland Comment on above: 2015 Plan of Treatment Date Care Activity Detail Author Start: 11-11-2021 Iv infusion therapy/prophylaxis /dx 1st to 1 [facility] Start: 10-27-2021 Colonoscopy w/biopsy single/multiple COLONOSCOPY AND BIOPSY [facility] Work Phone: Start: 10-27-2021 Patient discharge [facility] Work Phone: Start: 08-16-2021 Patient referral [facility] Work Phone: Start: 06-18-2018 Calcium mass conc CALCIUM SERUM (28213) [facility] Work Phone: Start: 06-13-2018 Protein electrophoretic fractj&quantj serum [facility] Work Phone: Start: 06-13-2018 25 hydroxy includes fractions if performed Vitamin D Hydroxy (61900) [facility] Work Phone: Start: 06-13-2018 1 25 dihydroxy includes fractions if performed VITAMIN D, 1, 25-DIHYDROXY (26820) [facility] Work Phone: Start: 06-13-2018 Calcium urine quantitative timed specimen URINE CALCIUM MODESTA TIMED 24 Hour (27185) [facility] Work Phone: Start: 06-13-2018 TSH Qn TSH (71309) [facility] Work Phone: Start: 06-13-2018 Phosphate [Mass/Vol] PHOSPHORUS (98081) [facility] Work Phone: Start: 06-13-2018 Sedimentation rate rbc non-automated SED RATE ERYTHROCYTE (84534) [facility] Work Phone: Start: 06-13-2018 Assay of parathormone PARATHORMONE (41486) [facility] Work Phone: Start: 06-13-2018 Hepatic function panel HEPATIC FUNCTION PANEL (10265) [facility] Work Phone: Start: 06-13-2018 Blood count complete automated CBC (AUTO) (78416) [facility] Work Phone: Start: 06-13-2018 Calcium [Mass/Vol] CALCIUM SERUM (55865) [facility] Work Phone: Start: 06-13-2018 CRP [Mass/Vol] C-REACTIVE PROTEIN (54365) [facility] Work Phone: Start: 06-13-2018 ALP enzyme act/vol ALKALINE PHOSPHATASE (14095) [facility] Work Phone: Start: 03-30-2018 Lipid panel LIPID PANEL (16658) [facility] Work Phone: Start: 03-30-2018 Glucose mass conc GLUCOSE (30410) [facility] Work Phone: Colonoscopy [facility] Work Phone: Patient referral [facility] Work Phone: [facility] Work Phone: [facility] Work Phone: BMI 20.0-20.9, a dult : Eprescribed prescriptions (G8553) [facility] Work Phone: Immunizations Immunization Date Immunization Notes Care Provider [facility] 07-23-2020 Covid (Pfizer) Dr. April Rocha Work Phone: [facility] 07-02-2020 Covid (Pfizer) Dr. April Rocha Work Phone: [facility] 11-11-2017 tetanus toxoid, reduced diphtheria toxoid, and acellular pertussis vaccine, adsorbed April Rocha [facility] Work Phone: 08-15-2016 TB Skin Test, Intradermal April Rocha [facility] Work Phone: Payers Date Payer Category Payer Self-pay [id number] 2023 Private Health Insurance [id number] 2017 Unknown [id number] 1970 Unknown [id number] 16 1970 Unknown [id number] 51 Unknown [facility] [place] [facility] Unknown [id number] Unknown [id number] 62 Unknown [id number] 62 Unknown [id number] 62 Unknown [id number] 62 Unknown [id number] 62 Unknown [id number] 62 Unknown [id number] 62 Social History Date Type Detail Facility Alcohol Use: Moderate alcohol use. [facility] Work Phone: Comment on above: couple times a week Caffeine Use [facility] Work Phone: Living Situation: Lives with spouse. [facility] Work Phone: Number of Child (age 0-17) Dependents: 3. [facility] Work Phone: Start: 08-16-2021 End: 11-18-2021 Tobacco smoking status LAIS Unknown if ever smoked [facility] Start: 1970 Sex Assigned At Female [facility] Start: 01-12-2023 Tobacco smoking status NHIS Never smoked tobacco (finding) [facility] Goals Date Patient Goal Desired Activity /State Mental Status Date Assessment Result Facility 11-11-2021 Cognitive function Voice/Name [facility] Work Phone: 10-27-2021 Cognitive function Drowsy [facility] Work Phone: 10-27-2021 Cognitive function Arousable To Voice/Nam e [facility] Work Phone: Clinical Notes 09-07-2021 to 10-19-2022 Note Date & Type Note Facility 10-19-2022 Note [facility] Pap Smear Specimen Adequacy October 19, 2022 4:28pm Comment . Satisfactory for evaluation. Endocervical and/or squamous metaplasticcells (endocervical component) are present. Comment on above: Satisfactory for cesario luation. Endocervical and/or squamous metaplasticcells (endocervical component) are present. 10-19-2022 Note [facility] Pap Smear Specimen Adequacy October 19, 2022 4:28pm Comment . Satisfactory for evaluation. Endocervical and/or squamous metaplasticcells (endocervical component) are present. Comment on above: Satisfactory for cesario luation. Endocervical and/or squamous metaplasticcells (endocervical component) are present. 10-19-2022 Note [facility] Pap Smear Specimen Adequacy October 19, 2022 4:28pm Comment . Satisfactory for evaluation. Endocervical and/or squamous metaplasticcells (endocervical component) are present. Comment on above: Satisfactory for cesario luation. Endocervical and/or squamous metaplasticcells (endocervical component) are present. 09-07-2021 Note [facility] Work Phone: Pap Smear QC Review September 07, 2021 3:45pm Comment . Anne Lara, Supervisory Guard Range (ASCP) Comment on above: Nurys Fisher ervisory Guard Range (ASCP) 09-07-[address] [facility] Work Phone: Pap Smear QC Review September 07, 2021 3:45pm Comment . Anne Lara, Supervisory Guard Range (ASCP) Comment on above: Nurys Fisher ervisory [employer] (ASCP) 09-07-2021 Note [facility] Work Phone: Pap Smear QC Review September 07, 2021 3:45pm Comment . Anne Lara, Supervisory Guard Range (ASCP) Comment on above: Nurys Fisher ervisory Guard [employer] (ASCP) Evaluation note Diagnosis Onset Date Colon cancer screening acute [facility] health care acu te [facility] Work Phone: Evaluation note* Diagnosis Onset Date Resolution Status Colon cancer screening acute Osteoporosis acute Preventative health care acu te Colon cancer screening acute [facility] Work Phone: Evaluation note* Diagnosis Onset Date Resolution Status Colon cancer screening acute Osteoporosis acute Preventative health care acu te Colon cancer screening acute Osteoporosis acute [facility] Work Phone: Evaluation noteNo assessment information available [facility] Work Phone: Reason for referral (narrative)No [facility] Family History No Family History Records FoundUnknown Family Member Name Dates Details bladder cncer Comments:Father. Status:Active Bladder problems Status:Active Cancer Comments:Paternal Grandmothe r. Status:Active Unknown Family Member Name Dates Details bladder cncer Comments:Father. Status:Active Bladder problems Status:Active Cancer Comments:Paternal Grandmothe r. Status:Active Unknown Family Member Name Dates Details bladder cncer Comments:Father. Status:Active Bladder problems Status:Active Cancer Comments:Paternal Grandmothe r. Status:Active Relationship Condition Age at Onset Recorded Date/T faustina mother Arthritis Unknown Osteoporosis Unknown Diabetes mellitus Unknown Hypertension Unknown father Arthritis Unknown Malignant neoplasm Unknown Cardiac disease Unknown sister Diabetes mellitus Unknown Instructions Name Dates Details Non-smoker : How to access h ealth information online Indication:Non-smoker Non-smoker : How to access h ealth information online - Detail Indication:Non-smoker Non-smoker : Patient Instruc tions Indication:Non-smoker Name Dates Details BMI 20.0-20.9, adult : How t o access health information online Indication:BMI 20.0-20.9, adult BMI 20.0-20.9, adult : How t o access health information online - Detail Indication:BMI 20.0-20.9, adult BMI 20.0-20.9, adult : Patie nt Instructions Indication:BMI 20.0-20.9, adult Non-smoker : How to access h ealth information online Indication:Non-smoker Non-smoker : How to access h ealth information online - Detail Indication:Non-smoker Non-smoker : Patient Instruc tions Indication:Non-smoker Name Dates Details BMI 20.0-20.9, adult : How t o access health information online Indication:BMI 20.0-20.9, adult BMI 20.0-20.9, adult : How t o access health information online - Detail Indication:BMI 20.0-20.9, adult BMI 20.0-20.9, adult : Patie nt Instructions Indication:BMI 20.0-20.9, adult Non-smoker : How to access h ealth information online Indication:Non-smoker Non-smoker : How to access h ealth information online - Detail Indication:Non-smoker Non-smoker : Patient Instruc tions Indication:Non-smoker Advance Directives No Advanced Directives Records Found Name Dates Details Immunization Registry [place] - Effective on 03/30/2018. Expiration date unspecified Effective:30-Mar-2018 Name Dates Details Immunization Registry [place] - Effective on 03/30/2018. Expiration date unspecified Effective:30-Mar-2018 Name Dates Details Immunization Registry [place] - Effective on 03/30/2018. Expiration date unspecified Effective:30-Mar-2018 Advance Directive Response Recorded Date/ Time Name of Medical Power of Mandrel Cleaner October 25, 2021 10:17am Living Will Yes October 25, 2021 10:17am Power of Mandrel Cleaner Yes October 25 10:17am Advance Directive Response Recorded Date/ Time Living Will Yes October 25, 2021 10:17am Power of Mandrel Cleaner Yes October 25 10:17am Advance Directive Response Recorded Date/ Time Living Will Yes October 25, 2021 10:17am Do you have a Healthcare [employer]? Yes October 25, 2021 10:17am Summary Purpose Chief Complaint and Reason for Visit Chief Complaint Amb Documentation [employer]-EST CARE-NPP MAILED Reason for Visit Colon cancer screeni ng Osteoporosis Preventative health care Chief Complaint Amb Documentation KITCHEN STEWARDESS-EST CARE-NPP MAILED SCREENING/OSTEO Reason for Visit Colon cancer screeni ng Osteoporosis Preventative health care Chief Complaint Amb Documentation KITCH[employer] STEWARDESS-EST CARE-NPP MAILED SCREENING/OSTEO Amb Documentation Reason for Visit Colon cancer screeni ng Osteoporosis Preventative health care Chief Complaint Amb Documentation KITCH[employer] STEWARDESS-EST CARE-NPP MAILED SCREENING/OSTEO Amb Documentation Reason for Visit Colon cancer screeni ng Osteoporosis Preventative health care Colon cancer screening Chief Complaint Amb Documentation KITCH[employer] STEWARDESS-EST CARE-NPP MAILED SCREENING/OSTEO Amb Documentation KITCHEN STEWARDESS, OSTEOPOROSIS, BIM PT, ROS & CONSENT ONLY Reason for Visit Colon cancer screeni ng Osteoporosis Preventative health care Colon cancer screening Osteoporosis Chief Complaint Amb Documentation K[employer] STEWARDESS-EST CARE-NPP MAILED SCREENING/OSTEO Amb Documentation KITCHEN STEWARDESS, OSTEOPOROSIS, BIM PT, ROS & CONSENT ONLY OSTEOPOROSIS Reason for Visit Colon cancer screeni ng Osteoporosis Preventative health care Colon cancer screening Osteoporosis Chief Complaint E ORDER SCREENING Chief Complaint Admit Date 1 Y FU November 12, 2024 1:00 pm Additional Source Comments INFORMATION SOURCE (unrecogn ized section and content) DATE [facility] CRE[facility] AUTHOR AUTHOR'S ORGANIZ ATION 05/09/2020 [facility] DATE CREATED AUTHOR AUTHOR'S ORGANIZ ATION 11/16/2024 [facility] Goals (unrecognized section and content) Goals may be documented in a n alternate sectionGoals may be documented in an alternate sectionGoals may be documented in an alternate sectionGoals may be documented in an alternate sectionGoals may be documented in an alternate sectionGoals may be documented in an alternate sectionGoals may be documented in an alternate sectionGoals may be documented in an alternate section Care Teams (unrecognized sec tion and content) Team Status: Active Member Role Status Dates Dr. April Rocha DO Family Provider Active Dr. Wagner Tubbs MD Primary Care Provider Active Team Status: Inactive Member Role Status Dates Dr. Wagner Tubbs MD Primary Care Provider Active Farrah Alfaro NP-C Attending Provider Active Team Status: Active Member Role Status Dates Dr. Wagner Tubbs MD Primary Care Xochitl healy, Attending Provider, Referring Provider Active Team Status: Inactive Member Role Status Dates Dr. Wagner Tubbs MD Primary Care Provider Active Dr. Rolly Clancy MD Attending Provider, Referring Provi daniel Active Team Status: Inactive Member Role Status Dates Dr. Wagner Tubbs MD Primary Care P niraj, Attending Provider, Referring Provider Active Team Status: Active Member Role/Relationship Status Dates Dr. Wagner Tubbs MD Primary Care Provider Active Team Status: Active Member Role/Relationship Status Dates Dr. Wagner Tubbs MD Primary Care Provider Active Start: November 11, 2024 Dr. Rolly Clancy MD Attending Provider Active Sta rt: November 11, 2024 Dr. Rolly Clancy MD Referring Provider Active Sta rt: November 11, 2024 Team Status: Inactive Member Role/Relationship Status Dates Dr. Wagner Tubbs MD Primary Care Provider Active Start: November 12, 2024 End: November 12, 2024 Dr. Wagner Tubbs MD Referring Provider Active Start: November 12, 2024 End: November 12, 2024 Dr. Rolly Clancy MD Attending Provider Active Sta rt: November 12, 2024 End: November 12, 2024 Team Status: Inactive Member Role/Relationship Status Dates Dr. Wagner Tubbs MD Primary Care Provider Active Start: November 11, 2024 End: November 11, 2024 Dr. Rolly Clancy MD Attending Provider Active Sta rt: November 11, 2024 End: November 11, 2024 Dr. Rolly Clancy MD Referring Provider Active Sta rt: November 11, 2024 End: November 11, 2024 FOR RECORDS PERTAINING TO PATIENTS WHO ARE OR HAVE BEEN ENROLLED IN A CHEMICAL DEPENDENCY/SUBSTANCEABUSE PROGRAM, SOME INFORMATION MAY BE OMITTED. This clinical summary was aggregated from multiple sources. Caution should be exercised in using it in the provision of clinical care. This summary normalizes information from multiple sources, and as a consequence, information in this document may materially change the coding, format and clinical context of patient data. In addition, data may be omitted in some cases. CLINICAL DECISIONS SHOULD BE BASED ON THE PRIMARY CLINICAL RECORDS. [facility] [employer] [facility] provides no warranty or guarantee of the accuracy or completeness of information in this document.
[2024-11-22 10:36] LABS: Hematocrit 40.5 % (37-47); Hemoglobin 13.3 g/dL (12.0-15.0); Immature Granulocytes Count 0.010 X10^3/uL (0.0-0.0); Mean Corp Hgb Conc 32.8 g/dL (32-36); Mean Corpuscular Volume 90.0 fL (81-99); Mean Platelet Vol. 11.2 fl (6.2-12.0); NRBC Flagged by Analyzer 0 % (0-5); Platelet Count 260 K/mm3 (150-450); RBC Distribution Width CV 12.5 % (11.6-14.6); RBC Distribution Width SD 41.1 fl (35.1-43.9); Red Blood Count 4.50 M/mm3 (4.2-5.4); White Blood Count 5.4 K/mm3 (4.4-11.0)
[2024-11-22 17:08] LABS: Cholesterol 183 mg/dL (<=200); Low Density Lipoprotein Calc. 95 mg/dL; Triglycerides 108 mg/dL; Very Low Density Lipoprotein 22 mg/dL (5-40); cholesterol:hdl ratio screen 2.77
[2024-11-22 17:36] LABS: AST(SGOT) 29 U/L (<=31); Alanine Aminotransfer ALT/SGPT 28 U/L (<=34); Albumin, Serum 4.4 g/dL (3.5-5.0); Alkaline Phosphatase 82 U/L (35-104); Anion Gap 10 (5-15); BUN 14 mg/dL (4-19); BUN/Creat Ratio 17.8 RATIO (10-20); Calcium,Total 10.4 mg/dL (7.6-11.0); Carbon Dioxide 27.5 mmol/L (21.0-32.0); Chloride 103 mmol/L (98-108); Globulin 2.7 g/dL (2.2-4.2); Glucose 44 mg/dL (70-99); Potassium 5.1 mmol/L (3.3-5.1)
== END | disposition home or self-care (01) ==
PROVIDERS: PCP Internal Medicine; Referring Provider Internal Medicine; Visit Provider Internal Medicine
DX: Z00.00 Encounter for general adult medical examination without abnormal findings (principal)
CPT/HCPCS: 36415; 80053; 80061; 85025

== ENCOUNTER 2024-11-26 12:57 | Outpatient (CLI) | payer OTHER, SELFPAY ==
[2024-11-26 13:10] VITALS: BP 106/65; PULSE 59; RESP 16; TEMP 35.8; O2SAT 100
[2024-11-26] MEDS: 0.9% NaCl Peripheral Flush Adult IV (13:12)
[2024-11-26] MEDS: 0.9% NaCl IVPB Med Flush (100mL) 15 ML IV (13:23)
[2024-11-26 13:52] VITALS: BP 104/60; PULSE 62; RESP 14; TEMP 36.2; O2SAT 100
== END 2024-11-26 23:59 | disposition home or self-care (01) ==
LOC: MEDOUTP 12:57
PROVIDERS: PCP Internal Medicine; Referring Provider Internal Medicine Endocrinology, Diabetes & Metabolism; Visit Provider Internal Medicine Endocrinology, Diabetes & Metabolism
DX: M81.0 Age-related osteoporosis without current pathological fracture (principal)
CPT/HCPCS: 96365; A4216; J3489

== ENCOUNTER → 2024-12-13 | Outpatient (CLI) | payer OTHER, SELFPAY ==
--- NOTE | 2024-12-13 08:15 | BI_ITS ---
EXAM: SCRN MAMM (CAD)W/RYAN BILAT DATE: 12/13/2024 CLINICAL HISTORY: F, Age 54 y/o , BREAST CANCER SCREENING TECHNIQUE: SCRN MAMM (CAD)W/RYAN BILAT COMPARISON: Prior exam(s) dated 12/06/2023, 11/01/2022, 08/26/2021. FINDINGS: TISSUE DENSITY: The breasts are extremely dense, which lowers the sensitivity of mammography. The mammogram demonstrates that the patient has dense breasts. Supplemental screening with whole breast ultrasound or MRI may be considered for further evaluation. Bilateral Breast Mammographic Findings: No significant masses, calcifications or other abnormalities are identified. BI/SCRN MAMM (CAD)W/RYAN BILAT IMPRESSION: There is no mammographic evidence of malignancy. OVERALL FINAL ASSESSMENT BI-RADS Must pick one of these options! RECOMMENDATION: Routine annual follow-up in 1 Year A letter with findings and recommendations will be mailed to the patient. Reading Location: [id number]
== END | disposition home or self-care (01) ==
LOC: OPBI 08:16
PROVIDERS: PCP Internal Medicine; Referring Provider Internal Medicine; Visit Provider Internal Medicine
DX: Z12.31 Encounter for screening mammogram for malignant neoplasm of breast (principal)
CPT/HCPCS: 77063; 77067